=== PATIENT | female | born 1960 | race Caucasian/White ===

== ENCOUNTER 2017-06-12 00:07 | Emergency (ER) | payer MEDICAID ==
[2017-06-12] MEDS ORDERED: ALPRAZolam 0.5 MG Tab PO ONE (01:47)
--- NOTE | 2017-06-12 02:18 | ER ---
DATE SEEN: 06/12/2017 REASON FOR VISIT: Chest tightness. HISTORY OF PRESENT ILLNESS: Pilar is a 56-year-old female complaining of chest tightness most nights of the week and this started tonight after supper. She presents about 6 hours later with tightness that radiates to the back, associated with palpitations and fluttering and difficulty breathing. REVIEW OF SYSTEMS: Denies any headaches, fever, or cough. PAST MEDICAL HISTORY: Atypical chest pain, atrial fibrillation, and anxiety. ALLERGIES: None. SOCIAL HISTORY: Does not smoke. FAMILY HISTORY: No history of premature coronary disease. PHYSICAL EXAMINATION: VITAL SIGNS: Blood pressure is 152/76, pulse is 76, and temperature 98.0. EARS, NOSE, AND THROAT: Negative. HEAD: Normal size. NECK: Supple. CHEST: Clear. CARDIOVASCULAR: Normal. MENTAL STATUS: Alert. Mild anxiety noted, but no signs of venancio or psychosis. LABORATORY DATA: Troponin, D-dimer, CMP unremarkable. Chest x-ray was normal. EKG negative for ST elevation. IMPRESSION: Atypical chest pain. PLAN: I gave her 0.5 mg Xanax b.i.d. p.r.n. We advised to follow with Dr. Gilmore on the , she already has an appointment. To return to the ED with any worsening symptoms. TIME SEEN: 0100 hours. /[id number] DHRUV/ROGELIO
[2017-06-12 02:25] VITALS: BP 141/75
--- NOTE | 2017-06-12 12:38 | CR ---
INDICATION: Chest pain. CHEST: PA and lateral views of the chest, 06/12/2017, were compared with 2014 and 09/15/2014. The heart is normal in size and shape. The aorta is tortuous with minimal calcification in the arch. Overlying EKG leads are noted. An active infiltrate or effusion was not identified. Moderate degenerative changes are noted in the mid thoracic spine with hypertrophic lipping anteriorly. Exogenous obesity is suggested. IMPRESSION: No acute process. Stable chest. MTDD
== END 2017-06-12 01:55 | disposition home or self-care (01) ==
LOC: FB.ED 00:07
DX: R07.89 Other chest pain (principal); I48.91 Unspecified atrial fibrillation; F41.9 Anxiety disorder, unspecified
CPT/HCPCS: 36415; 71020; 80053; 83880; 84484; 85025; 85379; 93005; 99284; A9270; 99283

== ENCOUNTER 2017-10-17 01:29 | Observation (INO) | payer MEDICAID ==
[2017-10-17] MEDS ORDERED: Diltiazem 25 MG/5 ML SDV IVPUSH ONE (01:46)
[2017-10-17] MEDS ORDERED: Diltiazem 25 MG/5 ML SDV ONE (01:49)
[2017-10-17] MEDS ORDERED: Metoprolol Succinate 25 MG Tab.ER PO ONE (01:57)
[2017-10-17] MEDS ORDERED: Metoprolol Tartrate 25 MG Tab PO ONE (02:15)
[2017-10-17] MEDS ORDERED: Sodium Chloride 0.9% 500 ML IV ONE (02:19)
[2017-10-17] MEDS ORDERED: Sodium Chloride 0.9% 500 ML IV SCH (02:20)
[2017-10-17] MEDS: Metoprolol Tartrate 5 MG/5 ML SDV IVPUSH ONE ×2 (02:47→02:50)
[2017-10-17] MEDS ORDERED: Acetaminophen 325 MG Tab PO PRN (06:14)
[2017-10-17] MEDS ORDERED: Temazepam 7.5 MG Cap PO PRN (06:14)
[2017-10-17] MEDS ORDERED: Docusate Sodium 100 MG Cap PO PRN (06:14)
[2017-10-17] MEDS ORDERED: Ondansetron 4 MG Tab.DIS PO PRN (06:14)
[2017-10-17] MEDS ORDERED: Sodium Chloride 0.9% 100 ML IV SCH (06:30)
[2017-10-17] MEDS ORDERED: Diltiazem 100 MG in Sodium Chloride 0.9% 100 ML IV SCH (06:45)
--- NOTE | 2017-10-17 08:35 | PCM.HP ---
H&P History of Present Illness - General Date of Service: 10/17/17 Admit Problem/Dx: Admission Diagnosis/Problem Admission Diagnosis/Problem Atrial fibrillation Source of Information: Patient History Limitations: Reports: No Limitations - History of Present Illness Initial Comments - Free Text/Narative: This is a 57-year-old female patient with history of atrial fibrillation. She dates she went to bed last day and after that she had irregular heart rate with shortness of breath chest pressure that radiated to her back. No nausea or vomiting, diaphoresis. She knew she was atrial fibrillation. Normally she can cough and it goes away and it did not so she went to the ER. She was given Cardizem 25 mg IV. Her rate was 130s that was reported by the nurse. Gave her some beta ed her blood pressure dropped. She was admitted for observation. She still in atrial fibrillation her heart rate is controlled currently. She states she still doesn't feel quite right but she denies chest pressure or shortness of breath. 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 OB/BYN History: G2G2 Musculoskeletal History: Reports: Other (See Below) Other Musculoskeletal History: Pt states that she has been told she might have MS and or that she might have Fibromyalgia - Infectious Disease History Infectious Disease History: Reports: Chicken Pox - Past Surgical History HEENT Surgical History: Reports: None GI Surgical History: Reports: Cholecystectomy Other Musculoskeletal Surgeries/Procedures:: back surgery Social & Family History - Family History Family Medical History: Unobtainable - Tobacco Use Smoking Status *Q: Never Smoker Second Hand Smoke Exposure: No - Caffeine Use Caffeine Use: Reports: None - Alcohol Use Days Per Week of Alcohol Use: 0 - Recreational Drug Use Recreational Drug Use: No H&P Review of Systems - Review of Systems: Review Of Systems: See Below General: Reports: Fatigue HEENT: Reports: No Symptoms Pulmonary: Reports: Shortness of Breath. Denies: Wheezing, Cough, Sputum, Hemoptysis Cardiovascular: Reports: Other (Chest pressure) Gastrointestinal: Reports: No Symptoms Genitourinary: Reports: No Symptoms Musculoskeletal: Reports: Joint Pain Skin: Reports: Other (Hair loss) Psychiatric: Reports: No Symptoms Neurological: Reports: No Symptoms Hematologic/Lymphatic: Reports: No Symptoms Immunologic: Reports: No Symptoms Exam - Exam Exam: See Below - Vital Signs Vital Signs: Last Vital Signs Temp 98.2 F 10/17/17 06:57 Pulse 88 10/17/17 06:57 Resp 18 10/17/17 06:57 BP 125/69 10/17/17 06:57 Pulse Ox 97 10/17/17 06:57 Weight: 218 lb 4.8 oz - Exam General: Alert, Oriented, Cooperative HEENT: PERRLA, Hearing Intact, Posterior Pharynx Clear, TMs Clear Neck: Supple, Trachea Midline Lungs: Clear to Auscultation, Normal Respiratory Effort. No: Rales, Rhonchi Cardiovascular: Regular Rate, Irregular Rhythm. No: Systolic Murmur, Diastolic Murmur GI/Abdominal Exam: Normal Bowel Sounds, Soft, Non-Tender, No Organomegaly, No Distention, No Abnormal Bruit, No Mass Back Exam: Normal Inspection, Full Range of Motion Extremities: Normal Inspection, Normal Range of Motion, Non-Tender, No Pedal Edema Skin: Warm, Dry, Intact Neuro Extensive - Mental Status: Alert, Oriented x3, Normal Mood/Affect, Normal Cognition, Memory Intact Neuro Extensive - Motor, Sensory, Reflexes: Normal Gait Psychiatric: Alert, Normal Affect, Normal Mood - Patient Data Result Diagrams: 10/17/17 01:50 10/17/17 01:50 *Q Meaningful Use (ADM) - VTE *Q VTE Criteria *Q: - Stroke *Q Stroke Criteria *Q: - AMI *Q AMI Criteria *Q: - Problem List (1) Hypothyroidism SNOMED Code(s): 80300118 ICD Code: E03.9 - HYPOTHYROIDISM, UNSPECIFIED Status: Acute Current Visit : Yes (2) Atrial fibrillation SNOMED Code(s): 56639028 ICD Code: I48.91 - UNSPECIFIED ATRIAL FIBRILLATION Status: Acute Current Visit: No Problem Details: Screening lab work, chest x ray, note no other abnormalities. Problem List Initiated/Reviewed/Updated: Yes Orders Last 24hrs: Active Orders 24 hr Category Date Time Status Diltiazem [Cardizem] 100 mg Med 10/17/17 06:45 Active Sodium Chloride 0.9% [Normal Saline] 100 ml IV TITRATE Pantoprazole [ProTONIX] Med 10/17/17 08:00 Active 40 mg PO 0600 Sodium Chloride 0.9% [Normal Saline] 100 ml Med 10/17/17 06:30 Active IV ASDIRECTED Medication Orders Acetaminophen (Tylenol) 650 mg PO Q4H PRN PRN Reason: Pain (Mild 1-3)/fever Docusate Sodium (Colace) 100 mg PO BID PRN PRN Reason: Constipation Enoxaparin Sodium (Lovenox) 40 mg SUBCUT Q24H [facility] Sodium Chloride (Normal Saline) 500 mls @ 999 mls/hr IV ASDIRECTED [facility] Last Admin: 10/17/17 02:30 Dose: 999 mls/hr Sodium Chloride (Normal Saline) 100 mls @ 100 mls/hr IV ASDIRECTED [facility] Diltiazem HCl 100 mg/ Sodium (Chloride) 100 mls @ 10 mls/hr IV TITRATE [facility]; 10 MG/HR PRN Reason: Protocol Ondansetron HCl (Zofran Odt) 4 mg PO Q4H PRN PRN Reason: nausea, able to take PO Pantoprazole Sodium (Protonix) 40 mg PO 0600 [facility] Temazepam (Restoril) 7.5 mg PO BEDTIME PRN PRN Reason: Sleep Assessment/Plan Comment:: 1. Patient was admitted to the floor on telemetry. Her rate currently is controlled. 2. Continue observation to see if she'll convert on her own. 3. She's not in the home meds at this times area 4. Start low-dose of levothyroxine 50 g a day. 5. Regular diet 6. Up ad franca.
[2017-10-17] MEDS: Pantoprazole 40 MG Tab.CR PO SCH (08:40)
[2017-10-17] MEDS: Enoxaparin 40 MG/0.4 ML Syringe SUBCUT SCH (08:40)
[2017-10-17] MEDS: Levothyroxine 50 MCG Tab PO SCH (09:41)
[2017-10-17] MEDS ORDERED: Sodium Chloride 0.9% 10 ML Syringe FLUSH PRN (11:31)
[2017-10-17] MEDS: Diltiazem IR 30 MG Tab PO SCH ×3 (11:56→23:47)
[2017-10-18 04:02] VITALS: BP 103/66
[2017-10-18] MEDS: Levothyroxine 50 MCG Tab PO SCH (06:34)
[2017-10-18] MEDS: Pantoprazole 40 MG Tab.CR PO SCH (06:34)
[2017-10-18] MEDS: Enoxaparin 40 MG/0.4 ML Syringe SUBCUT SCH (06:35)
--- NOTE | 2017-10-18 07:45 | PCM.PN ---
- General Info Date of Service: 10/18/17 Admission Dx/Problem (Free Text): This patient states she had lots of hot flashes last night. She normally has and that they were worse. Course she was started on thyroid medicine yesterday. She converted last night and she feels good. She denies chest pain, palpitations , weakness or shortness of breath. - Patient Data Vitals - Most Recent: Last Vital Signs Temp 98.2 F 10/18/17 03:15 Pulse 64 10/18/17 03:15 Resp 16 10/18/17 03:15 BP 103/66 10/18/17 03:15 Pulse Ox 96 10/18/17 03:15 Weight - Most Recent: 218 lb 4.8 oz Med Orders - Current: Current Medications Acetaminophen (Tylenol) 650 mg PO Q4H PRN PRN Reason: Pain (Mild 1-3)/fever Docusate Sodium (Colace) 100 mg PO BID PRN PRN Reason: Constipation Enoxaparin Sodium (Lovenox) 40 mg SUBCUT Q24H [facility] Last Admin: 10/18/17 06:35 Dose: 40 mg Levothyroxine Sodium (Synthroid) 50 mcg PO 0600 [facility] Last Admin: 10/18/17 06:34 Dose: 50 mcg Ondansetron HCl (Zofran Odt) 4 mg PO Q4H PRN PRN Reason: nausea, able to take PO Pantoprazole Sodium (Protonix) 40 mg PO 0600 [facility] Last Admin: 10/18/17 06:34 Dose: 40 mg Sodium Chloride (Saline Flush) 10 ml FLUSH ASDIRECTED PRN PRN Reason: to keep vein open Temazepam (Restoril) 7.5 mg PO BEDTIME PRN PRN Reason: Sleep Discontinued Medications Diltiazem HCl (Diltiazem) Confirm Administered Dose 25 mg .ROUTE .STK-MED ONE Stop: 10/17/17 01:50 Last Admin: 10/17/17 01:54 Dose: Not Given Diltiazem HCl (Diltiazem) 25 mg IVPUSH ONETIME ONE Stop: 10/17/17 01:47 Last Admin: 10/17/17 01:54 Dose: 25 mg Diltiazem HCl (Cardizem) 60 mg PO Q6H [facility] Stop: 10/17/17 23:31 Last Admin: 10/17/17 23:47 Dose: 60 mg Sodium Chloride (Normal Saline) 500 mls @ 999 mls/hr IV .BOLUS ONE Stop: 10/17/17 02:49 Last Admin: 10/17/17 02:49 Dose: Not Given Sodium Chloride (Normal Saline) 500 mls @ 999 mls/hr IV ASDIRECTED [facility] Last Admin: 10/17/17 02:30 Dose: 999 mls/hr Sodium Chloride (Normal Saline) 100 mls @ 100 mls/hr IV ASDIRECTED EM[facility] Diltiazem HCl 100 mg/ Sodium (Chloride) 100 mls @ 10 mls/hr IV TITRATE EMILIA; 10 MG/HR PRN Reason: Protocol Metoprolol Succinate (Toprol Xl) 25 mg PO ONETIME ONE Stop: 10/17/17 01:58 Last Admin: 10/17/17 02:54 Dose: Not Given Metoprolol Tartrate (Lopressor) 25 mg PO ONETIME ONE Stop: 10/17/17 02:16 Last Admin: 10/17/17 02:26 Dose: 25 mg Metoprolol Tartrate (Lopressor) 5 mg IVPUSH ONETIME ONE Stop: 10/17/17 02:31 Last Admin: 10/17/17 02:50 Dose: Not Given - Exam General: Alert, Oriented Lungs: Clear to Auscultation, Normal Respiratory Effort Cardiovascular: Regular Rate, Regular Rhythm, No Murmurs Extremities: No Pedal Edema - Problem List & Annotations (1) Hypothyroidism SNOMED Code(s): 34530046 Code(s): E03.9 - HYPOTHYROIDISM, UNSPECIFIED Status: Acute Current Visit : Yes (2) Atrial fibrillation SNOMED Code(s): 01066520 Code(s): I48.91 - UNSPECIFIED ATRIAL FIBRILLATION Status: Acute Current Visit: No Annotation/Comment:: Screening lab work, chest x ray, note no other abnormalities. - Problem List Review Problem List Initiated/Reviewed/Updated: Yes - My Orders Last 24 Hours: My Active Orders 10/17/17 09:00 Levothyroxine [Synthroid] 50 mcg PO 0600 10/17/17 11:31 Sodium Chloride 0.9% [Saline Flush] 10 ml FLUSH ASDIRECTED PRN - Plan Plan:: 1. Discharge to home. 2. I'm not going to send her home on the thyroid at this moment because of the hot flashes. I will have a repeat TSH with a T4-T3 in the clinic. 3. No Cardizem at home at this time.
--- NOTE | 2017-10-18 07:50 | PCM.DCSUM1 ---
Discharge Summary - Hospital Course Free Text/Narrative:: Hospital course-patient was placed in the hospital after she had the Cardizem bolus and the labetalol. She was hypotensive in the ER and was bolused with fluids and blood pressure returned to normal. We put her in for observation. Watch her on telemetry. Her TSH was over 8 so I started 50 g of levothyroxine. Patient had lots of hot flashes the night she was on this medicine. She says she has hot flashes normally but it's worse. At T4/T3 were not done. So I will stop this medicine have it rechecked in the clinic with a TSH, T4 and T3. Patient's pulse was controlled on no medication but when she got up to walk it would go up to like 130s. So start Cardizem 60 mg every 6 hours total midnight. With the thought in the morning and start long-acting Cardizem. Patient converted overnight and will be discharged to home. Brief History: This is a 57-year-old female patient with history of atrial fibrillation. She dates she went to bed last day and after that she had irregular heart rate with shortness of breath chest pressure that radiated to her back. No nausea or vomiting, diaphoresis. She knew she was atrial fibrillation. Normally she can cough and it goes away and it did not so she went to the ER. She was given Cardizem 25 mg IV. Her rate was 130s that was reported by the nurse. Gave her some beta ed her blood pressure dropped. She was admitted for observation. She still in atrial fibrillation her heart rate is controlled currently. She states she still doesn't feel quite right but she denies chest pressure or shortness of breath. - Discharge Data Discharge Date: 10/18/17 Discharge Disposition: Home, Self-Care 01 Condition: Good - Discharge Diagnosis/Problem(s) (1) Hypothyroidism SNOMED Code(s): 57715757 ICD Code: E03.9 - HYPOTHYROIDISM, UNSPECIFIED Status: Acute Current Visit : Yes (2) Atrial fibrillation SNOMED Code(s): 21697220 ICD Code: I48.91 - UNSPECIFIED ATRIAL FIBRILLATION Status: Acute Current Visit: No Problem Details: Screening lab work, chest x ray, note no other abnormalities. - Patient Instructions Diet: Regular Diet as Tolerated Activity: As Tolerated Driving: May Drive Today Showering/Bathing: May Shower Other/Special Instructions: 1. TSH, T4, T3 on Thursday of this week. I set this up for her. 2. Appointment with Dr. Gilmore on . I sent this up for her. 3. She has no work restrictions. 4. Echocardiogram in the clinic. I will set this up also. - Discharge Plan Home Medications: Home Meds Black Cohosh 2 cap PO DAILY 10/17/17 [History] Cholecalciferol (Vitamin D3) [Vitamin D3] 1,000 unit PO DAILY 10/17/17 [History] Cinnamon Bark [Cinnamon] 500 mg PO BID 10/17/17 [History] Cranberry Extract [Cranberry] 500 mg PO DAILY 10/17/17 [History] Garlic 500 mg PO DAILY 10/17/17 [History] L.acidoph,Paracasei, B.lactis [Probiotic] 1 cap PO DAILY 10/17/17 [History] Magnesium 800 mg PO BEDTIME 10/17/17 [History] Magnesium Oxide 400 mg PO DAILY 10/17/17 [History] Multivitamin [One Daily] 1 tab PO DAILY 10/17/17 [History] Naproxen Sodium [Aleve] 220 mg PO BID PRN 10/17/17 [History] Ranitidine [Zantac] 75 - 150 mg PO DAILY 10/17/17 [History] Tumeric 1 tab PO DAILY 10/17/17 [History] Patient Handouts: Levothyroxine tablets, Diltiazem tablets, Atrial Fibrillation , [id number] Forms: ED Department Discharge Referrals: PCP,None [Primary Care Provider] - - Discharge Summary/Plan Comment DC Time >30 min.: No - Patient Data Vitals - Most Recent: Last Vital Signs Temp 98.2 F 10/18/17 03:15 Pulse 64 10/18/17 03:15 Resp 16 10/18/17 03:15 BP 103/66 10/18/17 03:15 Pulse Ox 96 10/18/17 03:15 Weight - Most Recent: 218 lb 4.8 oz Med Orders - Current: Current Medications Acetaminophen (Tylenol) 650 mg PO Q4H PRN PRN Reason: Pain (Mild 1-3)/fever Docusate Sodium (Colace) 100 mg PO BID PRN PRN Reason: Constipation Enoxaparin Sodium (Lovenox) 40 mg SUBCUT Q24H [facility] Last Admin: 10/18/17 06:35 Dose: 40 mg Levothyroxine Sodium (Synthroid) 50 mcg PO 0600 [facility] Last Admin: 10/18/17 06:34 Dose: 50 mcg Ondansetron HCl (Zofran Odt) 4 mg PO Q4H PRN PRN Reason: nausea, able to take PO Pantoprazole Sodium (Protonix) 40 mg PO 0600 [facility] Last Admin: 10/18/17 06:34 Dose: 40 mg Sodium Chloride (Saline Flush) 10 ml FLUSH ASDIRECTED PRN PRN Reason: to keep vein open Temazepam (Restoril) 7.5 mg PO BEDTIME PRN PRN Reason: Sleep Discontinued Medications Diltiazem HCl (Diltiazem) Confirm Administered Dose 25 mg .ROUTE .STK-MED ONE Stop: 10/17/17 01:50 Last Admin: 10/17/17 01:54 Dose: Not Given Diltiazem HCl (Diltiazem) 25 mg IVPUSH ONETIME ONE Stop: 10/17/17 01:47 Last Admin: 10/17/17 01:54 Dose: 25 mg Diltiazem HCl (Cardizem) 60 mg PO Q6H [facility] Stop: 10/17/17 23:31 Last Admin: 10/17/17 23:47 Dose: 60 mg Sodium Chloride (Normal Saline) 500 mls @ 999 mls/hr IV .BOLUS ONE Stop: 10/17/17 02:49 Last Admin: 10/17/17 02:49 Dose: Not Given Sodium Chloride (Normal Saline) 500 mls @ 999 mls/hr IV ASDIRECTED [facility] Last Admin: 10/17/17 02:30 Dose: 999 mls/hr Sodium Chloride (Normal Saline) 100 mls @ 100 mls/hr IV ASDIRECTED [facility] Diltiazem HCl 100 mg/ Sodium (Chloride) 100 mls @ 10 mls/hr IV TITRATE [facility]; 10 MG/HR PRN Reason: Protocol Metoprolol Succinate (Toprol Xl) 25 mg PO ONETIME ONE Stop: 10/17/17 01:58 Last Admin: 10/17/17 02:54 Dose: Not Given Metoprolol Tartrate (Lopressor) 25 mg PO ONETIME ONE Stop: 10/17/17 02:16 Last Admin: 10/17/17 02:26 Dose: 25 mg Metoprolol Tartrate (Lopressor) 5 mg IVPUSH ONETIME ONE Stop: 10/17/17 02:31 Last Admin: 10/17/17 02:50 Dose: Not Given *Q Meaningful Use (DIS) - VTE *Q VTE Criteria *Q: - Stroke *Q Stroke Criteria *Q: - AMI *Q AMI Criteria *Q:
--- NOTE | 2017-10-20 14:25 | ER ---
DATE SEEN: 10/17/2017 TIME SEEN: This patient was seen at 0135 hours. HISTORY OF PRESENT ILLNESS: The patient is complaining of shortness of breath and onset of atrial fibrillation. She was just going to bed, and she noted increased irregularity of heartbeat. She has had known history of this in the past 30 years. She notes she usually treats it with cough. She has been hospitalized on 2 occasions for atrial fibrillation. Most recently, in June and May, 2016 and 2014. Last time we treated with Cardizem drip and seemed to stabilize, after having been admitted to the hospital. The patient noted with some onset of atrial fibrillation last night, she felt weird, mildly short of breath, and slight tightness in the chest. No history of previous PE or myocardial infarction. MEDICATIONS: She takes a host of 13 [id number] medicines: 1. Cinnamon. 2. Turmeric. 3. Tart hawkins. 4. Magnesium. 5. Vitamin C. 6. B complex. 7. Garlic. 8. Eggshell membrane (for her knees). 9. Fish oil. 10.Probiotic. 11.Black cohosh. PREVIOUS SURGERY: Cholecystectomy, laparoscopic laser treatment of endometriosis, tonsillectomy, x1, and D and C. SOCIAL HISTORY: . The patient is nonsmoker, does not drink alcohol. The patient lives in [place]. PAST MEDICAL HISTORY: Significant for obesity, rheumatoid arthritis needs "right knee replacement." REVIEW OF SYSTEMS: HEENT: Occasionally eyes get blurry, lasts for a part of the day and resolves spontaneously. 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 She attempted cough to resolve her atrial fibrillation, was not successful in the last 5 to 6 hours. ABDOMEN: GERD significant problem. She does not take any prescribed medicine. She uses [id number] Tagamet and gets along reasonably well, also uses madison. MUSCULOSKELETAL: Right knee arthritis, needs replacement and has arthritis in left hand. She is right-handed. She has rash intermittently on her eyebrows, forehead, and her neck that comes and goes, sometime lasts part of the day and resolves with etiology indeterminate. Chronic low back pain. Arthritis, generalized. LUNGS: Mild shortness of breath. Last night, she felt short of breath and felt "weird". GENITOURINARY: Denies frequency, urgency, or dysuria. PSYCHIATRIC: Negative. No depression. DERMIS: Noted above. PHYSICAL EXAMINATION: VITAL SIGNS: On arrival at 0130 hours, irregularly irregular heart rate. Noted on the chart, heart rate 137 with irregularly irregular heart rate. CONSTITUTIONAL: The patient is overweight. She feels "weird" and feels mild shortness of breath, more than normal, and notes again she experiences she is aware of irregularly irregular heartbeat. HEENT: PERRLA intact. Eyegrounds negative. Pharynx without abnormality. NECK: No thyromegaly or masses in neck. No cervical adenopathy. No bruits in the neck. LUNGS: Clear without rales, rhonchi, or wheezes. HEART: S1, S2. No murmur. She does have an irregularly irregular heart rate. CHEST: Nontender to palpation. ABDOMEN: Nontender, no guarding, no rebound. Increased abdominal girth noted. EXTREMITIES: 1+ pedal edema. No pain with moving the knees or hips. She has mild dactylitis at left MP joints 2 and 3, less than the right and mild thickening membranes at MP joints 2 and 3 with involvement of dactylitis to the proximal fingers 2 and 3. Deep tendon reflexes present at upper extremities, absent at lower extremities. NEUROLOGIC: Cranial nerves 2 through 12 intact. Hearing intact. No pronator drift. Muscle strength is normal. No past-pointing. IMAGING: EKG, atrial fibrillation, heart rate 130s. On observation on the monitor, heart rate up to 150s, but mostly 130s. LABORATORY FINDINGS: Hemoglobin 14.9, MCH 25 is low, MCHC is 31.4 is low. RDW is 14.7, platelets 568,000 - thrombocythemia. Basophils 4%, otherwise normal neutrophils 51, lymphocytes 34, monos 8, eosinophils 4. Complete metabolic panel; sodium 141, potassium 4.0, chloride 103, bicarbonate 28, BUN 27, creatinine 0.9. GFR greater than 60. BUN and creatinine ratio 30 (dehydration). Troponin less than 0.017. Urinalysis normal 1.005 specific gravity and toxicology screen-drug screen negative. ASSESSMENT: 1. Atrial fibrillation. Thirty years history of the same with failure to respond to Cardizem 0.25 mg/kg push 25 mg,; she was treated with an additional metoprolol 25 mg orally plus 1 dose Lopressor 5 mg IV. Her heart rate went down to the 90s. 2. Obesity. 3. Perhaps atrial fibrillation magnified by the cascade of multiple over-the- counter medicines. She is currently not on any atrial fibrillation medicines. Consider beta-blockers. She needs beta-blockers. 4. Previous surgeries cholecystectomy, tonsillectomy, low back surgery, C- section, laparoscopic endometriosis laser treatment, dilation and curettage. 5. Rheumatoid arthritis - it is possible her atrial fibrillation is beginning to catch up to her rheumatoid arthritis and the effect on her heart caused rheumatoid heart - she also has manifestation of rheumatoid arthritis in her fingers and her right knee, the latter she needs replaced but has not chosen to get it replaced. 6. The patient still has this "weird" feeling in her lung that has almost completely resolved, but she feels still a slight shortness of breath. I do not feel she has a PE. D-dimer is ordered just before admission and is pending. The patient has lack of therapeutic response to trial of Cardizem loading dose. This resulted in a slight drop in her pressure. Consequently, the patient was not placed on drip. [place] that she might have more dramatic response with atrium and ventricle irregularity suppression with beta-ed, but she still says her blood pressures have climbed back up to 128/88, but still does not have a sinus rhythm. She did convert with the Cardizem drip on the last occasion. PLAN: Initiate Cardizem drip and admit for observation. EKG was noted to have sinus tachycardia with irregular heartbeat, heart rate 137. Right atrial enlargement, atypical right bundle-branch block, intraventricular conduction abnormality, QT was 485 milliseconds corrected. /[id number] LS/MODL ADDENDUM: The patient has multiplicity of [id number] herbals. [place] has hypoglycemic, hypertensive, and cardiac side effects and is also noted to decrease cholesterol. Cohosh has hypertensives side effect; otherwise, cohosh is noted to be estrogenic and supposedly affects hot flashes, cramping, menopause, but the studies that have been performed are inconsistent as to its overall effect. In general, the patient has not been on any anticoagulants. Perhaps it is worthy of consideration. She has been placed on enoxaparin with this admission for observation. /[id number] ULICES/ROGELIO FORD
== END 2017-10-18 08:50 | disposition home or self-care (01) ==
LOC: FB.ED 01:29 → FB.MS 06:14
PROVIDERS: ADMIT Emergency Medicine; ATTEND Family Medicine
DX: E03.9 Hypothyroidism, unspecified (principal); I48.91 Unspecified atrial fibrillation; E78.00 Pure hypercholesterolemia, unspecified; K21.9 Gastro-esophageal reflux disease without esophagitis; E66.9 Obesity, unspecified; Z90.49 Acquired absence of other specified parts of digestive tract; Z79.899 Other long term (current) drug therapy
CPT/HCPCS: 36415; 80053; 80305; 81001; 83735; 84443; 84484; 85025; 93005; 96361; 96372; 96374; 99285; A9270; G0378; J1650; J3490; J7040

== ENCOUNTER 2020-04-08 17:41 | Inpatient (IN) | payer MEDICAID, OTHER ==
[2020-04-08] MEDS: Sodium Chloride 0.9% 10 ML Syringe FLUSH PRN (17:55)
--- NOTE | 2020-04-08 17:56 | EDM.PDOC ---
ED HPI GENERAL MEDICAL PROBLEM - General Stated Complaint: SOB Time Seen by Provider: 04/08/20 17:55 Source of Information: Reports: Patient History Limitations: Reports: No Limitations - History of Present Illness INITIAL COMMENTS - FREE TEXT/NARRATIVE: 59-year-old female who reports awoke yesterday morning at 8 AM with a feeling of shortness of breath. She also felt that her heart was beating somewhat fast. She does have a history of atrial fibrillation but it did not seem irregular to her. She noted that the shortness of breath was much worse with any kind of activity and even small amounts of activity seemed to make her very short of breath. His symptoms of shortness of breath seemed to get progressively worse over time and last night it seemed to be even worse than during the day but she continued to "hold out" to see if it would get better. She noted that sometimes when she would walk her heart rate would get up to 160. She also developed a heaviness yesterday morning and that has been continually present since 8 AM yesterday. It did seem to wax and wane and it varied with her activity but it did not completely go away. She has had no cough. There has been no fever. He did have pain in her left shoulder and upper arm yesterday for a short time but that went away. She also has had intermittent pains in her right calf to just today that is a sharp pain and a crampy type pain. Seems to come and go as well. A heaviness in her chest is rated by her as a 5/10 at present but with activity it goes up to a 10/10. She has had no hemoptysis. She has had no abdominal pain. No nausea or vomiting. She does feel fatigued and tired. There are no other associated signs or symptoms. There are no other modifying factors. 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) Midsternal chest Pain Score (Numeric/FACES): 5 - Related Data Allergies Allergy/AdvReac Type Severity Reaction Status Date / Time No Known Allergies Allergy Verified 04/08/20 18:02 Home Meds: Home Meds Cholecalciferol (Vitamin D3) [Vitamin D3] 1,000 unit PO DAILY 10/17/17 [History] Cinnamon Bark [Cinnamon] 500 mg PO BID 10/17/17 [History] Cranberry Fruit Extract [Cranberry] 500 mg PO DAILY 10/17/17 [History] Garlic 1,000 mg PO DAILY 10/17/17 [History] L.acidoph,Paracasei, B.lactis [Probiotic] 1 cap PO DAILY 10/17/17 [History] Magnesium 400 mg PO QID 10/17/17 [History] Multivitamin [One Daily] 1 tab PO DAILY 10/17/17 [History] Tumeric 1 tab PO DAILY 10/17/17 [History] Cyclobenzaprine [Flexeril] 10 mg PO TID PRN 09/20/18 [History] Ibuprofen 400 mg PO BID 09/20/18 [History] diazePAM [Valium] 10 mg PO Q12H PRN 09/20/18 [History] Ascorbate Calcium [Vitamin C] 1,000 mg PO DAILY 11/01/18 [History] Lutein 20 mg PO DAILY 11/01/18 [History] Elbe-3/DHA/Epa/Fish Oil [Elbe-3 Fish Oil 1,000 MG Sfgl] 1,000 mg PO DAILY [History] Phytonadione [Mephyton] 5 mg PO DAILY 11/01/18 [History] Vitamin E 1,000 units PO DAILY 11/01/18 [History] Esomeprazole [NexIUM] 20 mg PO DAILY 04/08/20 [History] Past Medical History HEENT History: Reports: Impaired Vision, Other (See Below) Other HEENT History: TMJ Cardiovascular History: Reports: Afib (Paroxysmal A. fib), High Cholesterol Gastrointestinal History: Reports: GERD Other TURN DOWN MAN History: G2G2 Musculoskeletal History: Reports: Arthritis, Back Pain, Chronic, Other (See Below) Other Musculoskeletal History: Pt states that she has been told she might have MS and or that she might have Fibromyalgia - Infectious Disease History Infectious Disease History: Reports: Chicken Pox - Past Surgical History HEENT Surgical History: Reports: Tonsillectomy GI Surgical History: Reports: Cholecystectomy Female Surgical History: Reports: Section, Cystectomy (Laparoscopy for ovarian cystectomy), Other (See Below) (Laser surgery for removal of genital warts) Other Musculoskeletal Surgeries/Procedures:: back surgery Social & Family History - Family History Cardiac: Reports: CAD (Younger sister with recent SC and angioplasty with stent placed) - Caffeine Use Caffeine Use: Reports: None - Alcohol Use Alcohol Use History: No - Living Situation & Occupation Occupation: Unemployed ED ROS GENERAL - Review of Systems Review Of Systems: See Below Constitutional: Reports: Fatigue HEENT: Reports: No Symptoms Respiratory: Reports: Shortness of Breath. Denies: Cough, Hemoptysis Cardiovascular: Reports: Chest Pain, Lightheadedness GI/Abdominal: Reports: No Symptoms : Reports: No Symptoms Musculoskeletal: Reports: Shoulder Pain (Left shoulder and upper arm pain), Leg Pain (Right calf pain) Skin: Reports: No Symptoms Neurological: Reports: No Symptoms (Except lightheadedness as above.). Denies: Headache Hematologic/Lymphatic: Reports: No Symptoms Immunologic: Reports: No Symptoms ED EXAM, GENERAL - Physical Exam Exam: See Below Exam Limited By: No Limitations General Appearance: Alert, Mild Distress (Some respiratory distress even with talking but is able to talk in complete sentences.), Obese Eye Exam: Bilateral Eye: EOMI, Normal Inspection, PERRL Ears: Normal External Exam, Hearing Grossly Normal Ear Exam: Bilateral Ear: Auricle Normal Nose: Normal Inspection, Normal Mucosa, No Blood Throat/Mouth: Normal Inspection, Normal Lips, Normal Oropharynx, Normal Voice, No Airway Compromise Head: Atraumatic, Normocephalic Neck: Normal Inspection, Supple, Non-Tender, Full Range of Motion Respiratory/Chest: No Respiratory Distress, Lungs Clear, Normal Breath Sounds, No Accessory Muscle Use, Chest Non-Tender Cardiovascular: Normal Peripheral Pulses, No Gallop, No Murmur, No Rub, Tachycardia Peripheral Pulses: 2+: Radial (L), Radial (R), Dorsalis Pedis (L), Dorsalis Pedis (R) GI/Abdominal: Normal Bowel Sounds, Soft, Non-Tender, No Mass Back Exam: Normal Inspection, Full Range of Motion Extremities: Normal Range of Motion, Normal Capillary Refill, Pedal Edema ( Bilaterally but worse on the right than left.), Other (Right posterior calf tenderness. No venous cord noted.). No: Increased Warmth Neurological: Alert, Oriented, CN II-XII Intact, Normal Cognition, No Motor/ Sensory Deficits Skin Exam: Warm, Dry, Intact, Normal Color, No Rash EKG INTERPRETATION EKG Date: 04/08/20 Time: 17:48 Rhythm: Other (Sinus tachycardia) Rate (Beats/Min): 107 Yulan: LAD-Left Yulan Deviation P-Wave: Present QRS: Normal ST-T: Normal QT: Prolonged (Slightly prolonged QTc) Comparison: No Change (No change from EKG performed on 09/2018 other than now there is a sinus tachycardia) Course - Vital Signs Last Recorded V/S: Last Vital Signs Temp 36.5 C 04/08/20 17:41 Pulse 117 H 04/08/20 17:41 Resp 20 04/08/20 17:41 BP 146/83 H 04/08/20 17:41 Pulse Ox 96 04/08/20 17:41 - Orders/Labs/Meds Orders: Active Orders 24 hr Category Date Time Status EKG Documentation Completion [RC] ASDIRECTED Care 04/08/20 18:25 Active Ang Chest [CT] Stat Exams 04/08/20 19:00 Ordered Chest 1V Frontal [CR] Stat Exams 04/08/20 18:24 Taken Sodium Chloride 0.9% [Saline Flush] Med 04/08/20 18:24 Active 10 ml FLUSH ASDIRECTED PRN Peripheral IV Insertion Adult [OM.PC] Routine Oth 04/08/20 18:24 Ordered EKG 12 Lead [EK] Routine Ther 04/08/20 18:24 Ordered Medication Orders Sodium Chloride (Saline Flush) 10 ml FLUSH ASDIRECTED PRN PRN Reason: Keep Vein Open Last Admin: 04/08/20 17:55 Dose: 10 ml Labs: Laboratory Tests 04/08/20 04/08/20 04/08/20 Range/Units 17:55 17:55 17:55 WBC 14.9 H (4.5-12.0) X10-3/uL RBC 6.10 H (3.23-5.20) x10(6)uL Hgb 15.9 H (11.5-15.5) g/dL Hct 50.0 (30.0-51.3) % MCV 81.9 (80-96) fL MCH 26.0 L (27.7-33.6) pg MCHC 31.7 L (32.2-35.4) g/dL RDW 13.2 (11.5-15.5) % Plt Count 379 H (125-369) X10(3)uL MPV 8.6 (7.4-10.4) fL Neut % (Auto) 72.0 (46-82) % Lymph % (Auto) 15.6 (13-37) % [place] % (Auto) 7.8 (4-12) % Eos % (Auto) 2 (1.0-5.0) % Baso % (Auto) 3 H (0-2) % Neut # (Auto) 10.7 H (1.6-8.3) # Lymph # (Auto) 2.3 (0.6-5.0) # [place] # (Auto) 1.2 (0.0-1.3) # Eos # (Auto) 0.2 (0.0-0.8) # Baso # (Auto) 0.5 H (0.0-0.2) # PT (9.0-11.1) sec INR (1.00-1.24) APTT (24.4-33.2) SECONDS Sodium 139 (135-145) mmol/L Potassium 4.2 (3.5-5.3) mmol/L Chloride 103 (100-110) mmol/L Carbon Dioxide 27 (21-32) mmol/L BUN 13 (7-18) mg/dL Creatinine 1.0 (0.55-1.02) mg/dL Est Cr Clr Drug Dosing 51.02 mL/min Estimated GFR (MDRD) 56 L (>60) BUN/Creatinine Ratio 13.0 (9-20) Glucose 113 (80-116) mg/dL Calcium 9.7 (8.6-10.2) mg/dL Magnesium 2.2 (1.8-2.5) mg/dL Total Bilirubin 0.5 (0.1-1.3) mg/dL AST 32 H D (5-25) IU/L ALT 34 (12-36) U/L Alkaline Phosphatase 79 (56-112) IU/L Troponin I 18.8 (4.0-60.3) pg/mL NT-Pro-B Natriuret Pep 844 H (<=125) pg/mL Total Protein 8.1 H (6.0-8.0) g/dL Albumin 4.3 (3.2-4.6) g/dL Globulin 3.8 g/dL Albumin/Globulin Ratio 1.1 05/31/20 Range/Units 17:55 WBC (4.5-12.0) X10-3/uL RBC (3.23-5.20) x10(6)uL Hgb (11.5-15.5) g/dL Hct (30.0-51.3) % MCV (80-96) fL MCH (27.7-33.6) pg MCHC (32.2-35.4) g/dL RDW (11.5-15.5) % Plt Count (125-369) X10(3)uL MPV (7.4-10.4) fL Neut % (Auto) (46-82) % Lymph % (Auto) (13-37) % [place] % (Auto) (4-12) % Eos % (Auto) (1.0-5.0) % Baso % (Auto) (0-2) % Neut # (Auto) (1.6-8.3) # Lymph # (Auto) (0.6-5.0) # [place] # (Auto) (0.0-1.3) # Eos # (Auto) (0.0-0.8) # Baso # (Auto) (0.0-0.2) # PT 11.0 (9.0-11.1) sec INR 1.02 (1.00-1.24) APTT 26.7 (24.4-33.2) SECONDS Sodium (135-145) mmol/L Potassium (3.5-5.3) mmol/L Chloride (100-110) mmol/L Carbon Dioxide (21-32) mmol/L BUN (7-18) mg/dL Creatinine (0.55-1.02) mg/dL Est Cr Clr Drug Dosing mL/min Estimated GFR (MDRD) (>60) BUN/Creatinine Ratio (9-20) Glucose (80-116) mg/dL Calcium (8.6-10.2) mg/dL Magnesium (1.8-2.5) mg/dL Total Bilirubin (0.1-1.3) mg/dL AST (5-25) IU/L ALT (12-36) U/L Alkaline Phosphatase (56-112) IU/L Troponin I (4.0-60.3) pg/mL NT-Pro-B Natriuret Pep (<=125) pg/mL Total Protein (6.0-8.0) g/dL Albumin (3.2-4.6) g/dL Globulin g/dL Albumin/Globulin Ratio Meds: Medications Generic Name Dose Route Start Last Admin Trade Name Freq PRN Reason Stop Dose Admin Sodium Chloride 10 ml 04/08/20 18:24 04/08/20 17:55 Saline Flush FLUSH 10 ml ASDIRECTED PRN Administration Keep Vein Open Discontinued Medications Generic Name Dose Route Start Last Admin Trade Name Freq PRN Reason Stop Dose Admin Aspirin 324 mg 04/08/20 18:28 04/08/20 18:29 Aspirin PO 04/08/20 18:29 324 mg ONETIME ONE Administration Sodium Chloride 500 mls @ 999 mls/hr 04/08/20 18:59 04/08/20 19:20 Normal Saline IV 04/08/20 19:29 999 mls/hr .BOLUS ONE Administration Iopamidol 100 ml 04/08/20 19:06 04/08/20 19:18 Isovue-370 (76%) IV 04/08/20 19:07 77 ml . DIRECTED ONE Administration - Radiology Interpretation Free Text/Narrative:: Portable chest x-ray shows no acute disease. CTA of the chest shows bilateral pulmonary emboli per my reading. This is pending radiology read. - Re-Assessments/Exams Free Text/Narrative Re-Assessment/Exam: 04/08/20 18:55: Patient was normal. Chest x-ray. Her EKG is unchanged from previous other than she has a tachycardia. Her lab tests are the most part reassuring. She has a mild elevation in her proBNP. Her troponin was negative. Her BUN and creatinine were normal. She has signs and symptoms of pulmonary emboli with possible right lower extremity as a source of thromboemboli. I will send the patient for CTA of her chest. 04/08/20 19:31: Patient remains somewhat tachycardic. Her O2 saturations are still 100% on room air. Pulmonary review of the CTA of her chest by myself shows what I feel to be bilateral pulmonary emboli. This is pending radiology over read. The patient's disposition will be based on the diagnostic data that is still pending. 04/08/20 19:42: I discussed the CT findings with the patient. And I also discussed the need for admission with anticoagulation. The patient would be desirous of eating admitted here and would not necessarily want transport to another facility. Therefore the patient will be admitted here. Dr. Rubin will be placing admission orders as I am going off shift and be assuming care of the patient until the patient is on the service of Dr. De Leon at 7 AM on 04/09/2020. If there are any other findings on the CTA not appreciated by myself or Dr. Rubin , the patient's disposition could chained but the plan now is to admit the patient here. This will be marshaled by Dr. Rubin. Departure - Departure Time of Disposition: 19:45 Disposition: Admitted As Inpatient 64 Condition: Fair Clinical Impression: Bilateral pulmonary embolism - Discharge Information Referrals: Austin Marie MD [Primary Care Provider] - Sepsis Event Note - Focused Exam Vital Signs: Vital Signs Temp Pulse Resp BP Pulse Ox 04/08/20 17:41 36.5 C 117 H 20 146/83 H 96 Date Exam was Performed: 04/08/20 Time Exam was Performed: 19:41 - My Orders Last 24 Hours: My Active Orders 04/08/20 18:24 Chest 1V Frontal [CR] Stat Sodium Chloride 0.9% [Saline Flush] 10 ml FLUSH ASDIRECTED PRN Peripheral IV Insertion Adult [OM.PC] Routine EKG 12 Lead [EK] Routine 04/08/20 18:25 EKG Documentation Completion [RC] ASDIRECTED 04/08/20 19:00 Ang Chest [CT] Stat - Assessment/Plan Last 24 Hours: My Active Orders 04/08/20 18:24 Chest 1V Frontal [CR] Stat Sodium Chloride 0.9% [Saline Flush] 10 ml FLUSH ASDIRECTED PRN Peripheral IV Insertion Adult [OM.PC] Routine EKG 12 Lead [EK] Routine 04/08/20 18:25 EKG Documentation Completion [RC] ASDIRECTED 04/08/20 19:00 Ang Chest [CT] Stat
[2020-04-08] MEDS ORDERED: Aspirin 81 MG Tab.Chew PO ONE (18:28)
[2020-04-08] MEDS ORDERED: Sodium Chloride 0.9% 500 ML IV ONE (18:59)
[2020-04-08] MEDS ORDERED: Iopamidol 755 Mg/ML 100 ML Bottle IV ONE (19:06)
[2020-04-08] MEDS ORDERED: Heparin Sodium/0.45% NaCl 25,000 UNITS/500 ML BAG IV SCH (20:06)
[2020-04-08] MEDS ORDERED: Acetaminophen 325 MG Tab PO PRN (20:06)
[2020-04-09] MEDS ORDERED: Pantoprazole 40 MG Tab.CR PO SCH (06:00)
[2020-04-09] MEDS ORDERED: Morphine 2 MG/ML SYRINGE ONE (08:48)
[2020-04-09] MEDS ORDERED: Morphine 2 MG/ML SYRINGE IVPUSH ONE (08:50)
[2020-04-09] MEDS: Sodium Chloride 0.9% 10 ML Syringe FLUSH PRN (08:53)
[2020-04-09] MEDS ORDERED: traMADol 50 MG Tab PO ONE (09:12)
[2020-04-09] MEDS ORDERED: traMADol 50 MG Tab ONE (09:14)
--- NOTE | 2020-04-09 09:22 | CR ---
INDICATION: Shortness of breath, chest pressure. CHEST, 1 VIEW: Portable AP, upright view of the chest was obtained 04/08/20 and compared with 06/12/17 and 05/26/15. The heart did not appear grossly enlarged. The aorta is tortuous with minimal calcification in the arch. Overlying EKG leads are noted. A definite active infiltrate or effusion was not identified. Evidence of exogenous obesity is again noted. IMPRESSION: No acute process. MTDD
--- NOTE | 2020-04-09 09:25 | PCM.HP.2 ---
H&P History of Present Illness - General Date of Service: 04/09/20 Admit Problem/Dx: Admission Diagnosis/Problem Admission Diagnosis/Problem Pulmonary embolism Source of Information: Patient, Old Records History Limitations: Reports: No Limitations - History of Present Illness Initial Comments - Free Text/Narative: This is a 59-year-old female patient came to the ER last evening with shortness of breath. Barely started a BM in the morning. She has some chest heaviness and she said her breathing got so bad she could barely walk to her car. She has had a history of DVTs in the past. She has some achiness in her right leg. She denies cough. She has some chills but no runny nose, fevers, arm pain, jaw pain , nausea, vomiting. She was seen in the ER and diagnosed with bilateral extensive pulmonary emboli. She was admitted by the doctor last in place on a heparin drip. Knee Pain Score (Numeric/FACES): 4 Midsternal chest Pain Score (Numeric/FACES): 5 - Related Data Allergies/Adverse Reactions: Allergies Allergy/AdvReac Type Severity Reaction Status Date / Time No Known Allergies Allergy Verified 04/08/20 18:02 Home Medications: Home Meds Cholecalciferol (Vitamin D3) [Vitamin D3] 1,000 unit PO DAILY 10/17/17 [History] Cinnamon Bark [Cinnamon] 500 mg PO BID 10/17/17 [History] Cranberry Fruit Extract [Cranberry] 500 mg PO DAILY 10/17/17 [History] Garlic 1,000 mg PO DAILY 10/17/17 [History] L.acidoph,Paracasei, B.lactis [Probiotic] 1 cap PO DAILY 10/17/17 [History] Magnesium 400 mg PO QID 10/17/17 [History] Multivitamin [One Daily] 1 tab PO DAILY 10/17/17 [History] Tumeric 1 tab PO DAILY 10/17/17 [History] Cyclobenzaprine [Flexeril] 10 mg PO TID PRN 09/20/18 [History] Ibuprofen 400 mg PO BID 09/20/18 [History] diazePAM [Valium] 10 mg PO Q12H PRN 09/20/18 [History] Ascorbate Calcium [Vitamin C] 1,000 mg PO DAILY 11/01/18 [History] Lutein 20 mg PO DAILY 11/01/18 [History] [place]-3/DHA/Epa/Fish Oil [[place]-3 Fish Oil 1,000 MG Sfgl] 1,000 mg PO DAILY [History] Phytonadione [Mephyton] 5 mg PO DAILY 11/01/18 [History] Vitamin E 1,000 units PO DAILY 11/01/18 [History] Esomeprazole [NexIUM] 20 mg PO DAILY 04/08/20 [History] Past Medical History HEENT History: Reports: Impaired Vision, Other (See Below) Other HEENT History: TMJ Cardiovascular History: Reports: Afib, High Cholesterol Gastrointestinal History: Reports: GERD Genitourinary History: Reports: None ANALYTICS LEAD History: Reports: Other OB/BYN History: G2G2 Musculoskeletal History: Reports: Arthritis, Back Pain, Chronic, Other (See Below) Other Musculoskeletal History: Pt states that she has been told she might have MS and or that she might have Fibromyalgia Endocrine/Metabolic History: Reports: Obesity/BMI 30+ - Infectious Disease History Infectious Disease History: Reports: Chicken Pox - Past Surgical History HEENT Surgical History: Reports: Tonsillectomy GI Surgical History: Reports: Cholecystectomy Female Surgical History: Reports: Section, Cystectomy Neurological Surgical History: Reports: Other (See Below) Other Neurological Surgeries/Procedures: back surgery Other Musculoskeletal Surgeries/Procedures:: back surgery Social & Family History - Family History Family Medical History: Unobtainable Cardiac: Reports: CAD - Tobacco Use Smoking Status *Q: Never Smoker - Caffeine Use Caffeine Use: Reports: None - Recreational Drug Use Recreational Drug Use: No - Living Situation & Occupation Occupation: Unemployed H&P Review of Systems - Review of Systems: Review Of Systems: See Below General: Reports: Chills HEENT: Reports: No Symptoms Pulmonary: Reports: Shortness of Breath, Pleuritic Chest Pain. Denies: Wheezing , Cough, Sputum, Hemoptysis Cardiovascular: Reports: Chest Pain Gastrointestinal: Reports: No Symptoms Genitourinary: Reports: No Symptoms Musculoskeletal: Reports: No Symptoms Skin: Reports: No Symptoms Psychiatric: Reports: No Symptoms Neurological: Reports: No Symptoms Hematologic/Lymphatic: Reports: No Symptoms Immunologic: Reports: No Symptoms Exam - Exam Exam: See Below - Vital Signs Vital Signs: Last Vital Signs Temp 98.7 F 04/09/20 04:00 Pulse 94 04/09/20 02:00 Resp 20 06/01/20 04:00 BP 139/66 04/09/20 04:00 Pulse Ox 97 04/09/20 04:00 Weight: 223 lb 9.6 oz - Exam General: Alert, Oriented, Cooperative HEENT: Hearing Intact, Mucosa Moist & [place], Posterior Pharynx Clear, TMs Clear Neck: Supple, Trachea Midline Lungs: Clear to Auscultation, Normal Respiratory Effort, Other (Not using accessory muscle respiration.). No: Crackles, Rales, Rhonchi Cardiovascular: Regular Rate, Regular Rhythm, Tachycardia. No: Systolic Murmur GI/Abdominal Exam: Normal Bowel Sounds, Soft, Non-Tender, No Distention, No Abnormal Bruit Rectal (Female) Exam: Normal Exam Extremities: Normal Inspection, No Pedal Edema Skin: Warm, Dry, Intact Neuro Extensive - Mental Status: Alert, Oriented x3, Normal Mood/Affect, Normal Cognition, Memory Intact Neuro Extensive - Motor, Sensory, Reflexes: Normal Gait Psychiatric: Alert, Normal Mood - Patient Data Lab Results Last 24 hrs: Laboratory Results - last 24 hr 04/08/20 04/08/20 04/08/20 Range/Units 17:55 17:55 17:55 WBC 14.9 H (4.5-12.0) X10-3/uL RBC 6.10 H (3.23-5.20) x10(6)uL Hgb 15.9 H (11.5-15.5) g/dL Hct 50.0 (30.0-51.3) % MCV 81.9 (80-96) fL MCH 26.0 L (27.7-33.6) pg MCHC 31.7 L (32.2-35.4) g/dL RDW 13.2 (11.5-15.5) % Plt Count 379 H (125-369) X10(3)uL MPV 8.6 (7.4-10.4) fL Neut % (Auto) 72.0 (46-82) % Lymph % (Auto) 15.6 (13-37) % [place] % (Auto) 7.8 (4-12) % Eos % (Auto) 2 (1.0-5.0) % Baso % (Auto) 3 H (0-2) % Neut # (Auto) 10.7 H (1.6-8.3) # Lymph # (Auto) 2.3 (0.6-5.0) # [place] # (Auto) 1.2 (0.0-1.3) # Eos # (Auto) 0.2 (0.0-0.8) # Baso # (Auto) 0.5 H (0.0-0.2) # PT (9.0-11.1) sec INR (1.00-1.24) APTT (24.4-33.2) SECONDS Sodium 139 (135-145) mmol/L Potassium 4.2 (3.5-5.3) mmol/L Chloride 103 (100-110) mmol/L Carbon Dioxide 27 (21-32) mmol/L BUN 13 (7-18) mg/dL Creatinine 1.0 (0.55-1.02) mg/dL Est Cr Clr Drug Dosing 51.02 mL/min Estimated GFR (MDRD) 56 L (>60) BUN/Creatinine Ratio 13.0 (9-20) Glucose 113 (80-116) mg/dL Calcium 9.7 (8.6-10.2) mg/dL Magnesium 2.2 (1.8-2.5) mg/dL Total Bilirubin 0.5 (0.1-1.3) mg/dL AST 32 H D (5-25) IU/L ALT 34 (12-36) U/L Alkaline Phosphatase 79 (56-112) IU/L Troponin I 18.8 (4.0-60.3) pg/mL NT-Pro-B Natriuret Pep 844 H (<=125) pg/mL Total Protein 8.1 H (6.0-8.0) g/dL Albumin 4.3 (3.2-4.6) g/dL Globulin 3.8 g/dL Albumin/Globulin Ratio 1.1 04/08/20 04/09/20 04/09/20 Range/Units 17:55 02:05 07:00 WBC (4.5-12.0) X10-3/uL RBC (3.23-5.20) x10(6)uL Hgb (11.5-15.5) g/dL Hct (30.0-51.3) % MCV (80-96) fL MCH (27.7-33.6) pg MCHC (32.2-35.4) g/dL RDW (11.5-15.5) % Plt Count (125-369) X10(3)uL MPV (7.4-10.4) fL Neut % (Auto) (46-82) % Lymph % (Auto) (13-37) % [place] % (Auto) (4-12) % Eos % (Auto) (1.0-5.0) % Baso % (Auto) (0-2) % Neut # (Auto) (1.6-8.3) # Lymph # (Auto) (0.6-5.0) # [place] # (Auto) (0.0-1.3) # Eos # (Auto) (0.0-0.8) # Baso # (Auto) (0.0-0.2) # PT 11.0 (9.0-11.1) sec INR 1.02 (1.00-1.24) APTT 26.7 116.4 H* 68.7 H* (24.4-33.2) SECONDS Sodium (135-145) mmol/L Potassium (3.5-5.3) mmol/L Chloride (100-110) mmol/L Carbon Dioxide (21-32) mmol/L BUN (7-18) mg/dL Creatinine (0.55-1.02) mg/dL Est Cr Clr Drug Dosing mL/min Estimated GFR (MDRD) (>60) BUN/Creatinine Ratio (9-20) Glucose (80-116) mg/dL Calcium (8.6-10.2) mg/dL Magnesium (1.8-2.5) mg/dL Total Bilirubin (0.1-1.3) mg/dL AST (5-25) IU/L ALT (12-36) U/L Alkaline Phosphatase (56-112) IU/L Troponin I (4.0-60.3) pg/mL NT-Pro-B Natriuret Pep (<=125) pg/mL Total Protein (6.0-8.0) g/dL Albumin (3.2-4.6) g/dL Globulin g/dL Albumin/Globulin Ratio Result Diagrams: 04/08/20 17:55 04/08/20 17:55 Sepsis Event Note - Evaluation Sepsis Screening Result: No Definite Risk - Focused Exam Vital Signs: Vital Signs Temp Pulse Resp BP Pulse Ox 04/09/20 04:00 98.7 F 20 139/66 97 04/09/20 02:00 94 20 153/77 H 96 Date Exam was Performed: 04/09/20 Time Exam was Performed: 09:21 - Problem List (1) Bilateral pulmonary embolism SNOMED Code(s): 52570399 ICD Code: I26.99 - OTHER PULMONARY EMBOLISM WITHOUT ACUTE COR PULMONALE Status: Acute Current Visit: Yes (2) Atrial fibrillation SNOMED Code(s): 07768523 ICD Code: I48.91 - UNSPECIFIED ATRIAL FIBRILLATION Status: Acute Current Visit: No Problem Details: Screening lab work, chest x ray, note no other abnormalities. (3) Chest pain SNOMED Code(s): 01097607 ICD Code: R07.9 - CHEST PAIN, UNSPECIFIED Status: Acute Current Visit: No Problem List Initiated/Reviewed/Updated: Yes Orders Last 24hrs: Active Orders 24 hr Category Date Time Status Patient Status [ADT] Routine ADT 04/08/20 20:06 Active Anticoag Warfarin Education *Q [RC] DAILY Care 04/08/20 20:06 Active Cardiac Monitoring [RC] 08,16,00 Care 04/08/20 20:06 Active EKG Documentation Completion [RC] ASDIRECTED Care 04/08/20 18:25 Inactive Height and Weight [RC] UPON Care 04/08/20 20:06 Active Intake and Output [RC] 06,14,22 Care 04/08/20 20:06 Active Oxygen Therapy [RC] PRN Care 04/08/20 20:06 Active Pulse Oximetry [RC] CONTINUOUS Care 04/08/20 20:06 Active Up to Chair [RC] ASDIRECTED Care 04/08/20 20:06 Active VTE/DVT Education [RC] Per Unit Routine Care 04/08/20 20:06 Active Vital Signs [RC] 00,04,08,12,16,20 Care 04/08/20 20:06 Active Ang Chest [CT] Stat Exams 04/08/20 19:00 Taken Chest 1V Frontal [CR] Stat Exams 04/08/20 18:24 Taken PTT,PARTIAL THROMBOPLSTIN TIME [COAG] Routine Lab 04/09/20 13:00 Ordered Acetaminophen [Tylenol] Med 04/08/20 20:06 Active 650 mg PO Q4H PRN Heparin Sodium/0.45% NaCl [Heparin 25,000 Units in 1/2 Med 04/08/20 20:06 Active NS 500 ML] 25,000 units in 500 ml IV TITRATE Pantoprazole [ProTONIX] Med 04/09/20 06:00 Active 40 mg PO 0600 Sodium Chloride 0.9% [Saline Flush] Med 04/08/20 18:24 Active 10 ml FLUSH ASDIRECTED PRN Antiembolic Hose [OM.PC] Per Unit Routine Oth 04/08/20 20:06 Ordered Peripheral IV Insertion Adult [OM.PC] Routine Oth 04/08/20 18:24 Ordered Resuscitation Status Routine Resus Stat 04/08/20 19:46 Ordered EKG 12 Lead [EK] Routine Ther 04/08/20 18:24 Stop Req Medication Orders Acetaminophen (Tylenol) 650 mg PO Q4H PRN PRN Reason: Pain (Mild 1-3)/fever Last Admin: 04/09/20 05:25 Dose: 650 mg Heparin Sodium/Sodium Chloride (Heparin 25,000 Units In 1/2 Ns 500 Ml) 25,000 units in 500 mls @ 35.924 mls/hr IV TITRATE EMILIA; Protocol Last Titration: 04/09/20 03:58 Dose: 15 units/kg/hr, 29.937 mls/hr Admin: 04/08/20 20:45 Dose: 18 units/kg/hr, 35.924 mls/hr Pantoprazole Sodium (Protonix) 40 mg PO 0600 EMILIA Last Admin: 04/09/20 05:25 Dose: 40 mg Sodium Chloride (Saline Flush) 10 ml FLUSH ASDIRECTED PRN PRN Reason: Keep Vein Open Last Admin: 04/08/20 17:55 Dose: 10 ml Assessment/Plan Comment:: 1 admit on telemetry 2. Full code 3. Heparin drip was started. I will continue just in case the patient has a decompensation and it can be stopped. 4. Vitals are stable this time. Will wash him very closely. If they start to get worse consider transfer. I have placed the CT on PACS to [facility] in case I need to call them. 5. Regular diet 6. Up ad franca. 7. Review meds and continue the meds and appropriate. 8. Frequent vitals to watch for drop in blood pressure and oxygenation. Pulse is a little bit tacky so telemetry will be used. - Mortality Measure Prognosis:: Good
--- NOTE | 2020-04-09 10:35 | PCM.DCSUM1 ---
Discharge Summary - Hospital Course Free Text/Narrative:: Hospital course-the admitting doctor started a heparin drip. Most likely I was thinking that he can be stopped if needed be if she needs treatment. I know you checkup today. Initially the patient was stable even though her CT showed extensive bilateral PEs. After while the patient had more left pleuritic chest pain started to radiate around her anterior chest, more short of breath and nauseated. Her vital sign remained stable and she is afebrile. I did send the CT to pacs so it can be reviewed by [facility] doctors if needed. When she started get better I felt because extensiveness of the PE that she should be transferred is a case she deteriorates she would be a better place. I called one call talk to the hospital was dictaphone transcriber. Unfortunately forgot his name but it would be on the one call record. They agreed to take her in transfer. They asked about rotavirus testing. She is low risk but I will just go ahead and do it anyway. She'll be transferred by [facility] on a heparin drip to [facility]. Brief History: This is a 59-year-old female patient came to the ER last evening with shortness of breath. Barely started a BM in the morning. She has some chest heaviness and she said her breathing got so bad she could barely walk to her car. She has had a history of DVTs in the past. She has some achiness in her right leg. She denies cough. She has some chills but no runny nose, fevers, arm pain, jaw pain, nausea, vomiting. She was seen in the ER and diagnosed with bilateral extensive pulmonary emboli. She was admitted by the doctor last in place on a heparin drip. Diagnosis: Stroke: No - Discharge Data Discharge Date: 04/09/20 Discharge Disposition: DC/Tfer to Acute Hospital 02 Condition: Fair - Referral to Home Health Primary Care Physician: Austin Marie MD - Discharge Diagnosis/Problem(s) (1) Bilateral pulmonary embolism SNOMED Code(s): 82285622 ICD Code: I26.99 - OTHER PULMONARY EMBOLISM WITHOUT ACUTE COR PULMONALE Status: Acute Current Visit: Yes (2) Atrial fibrillation SNOMED Code(s): 54233295 ICD Code: I48.91 - UNSPECIFIED ATRIAL FIBRILLATION Status: Acute Current Visit: No Problem Details: Screening lab work, chest x ray, note no other abnormalities. (3) Chest pain SNOMED Code(s): 03015812 ICD Code: R07.9 - CHEST PAIN, UNSPECIFIED Status: Acute Current Visit: No - Patient Instructions Diet: NPO Activity: As Tolerated Driving: Do Not Drive Showering/Bathing: May Shower Other/Special Instructions: 1. Transfer to [facility] because of extensive PEs and seems to be getting worse. Therefore she can have ICU care, IR if needed. 2. Discuss the patient with the on-call hospitalist. Unfortunately he forgot his name at [facility] one call. That would be recorded by [facility] one call. 3. Transferred by [facility] with heparin drip running. 4. We did the COVID 19 screen even though most likely will be negative. If it comes back positive for the next hour I told the nurse to call one call to alert them. - Discharge Plan Home Medications: Home Meds Cholecalciferol (Vitamin D3) [Vitamin D3] 1,000 unit PO DAILY 10/17/17 [History] Cinnamon Bark [Cinnamon] 500 mg PO BID 10/17/17 [History] Cranberry Fruit Extract [Cranberry] 500 mg PO DAILY 10/17/17 [History] Garlic 1,000 mg PO DAILY 10/17/17 [History] L.acidoph,Paracasei, B.lactis [Probiotic] 1 cap PO DAILY 10/17/17 [History] Magnesium 400 mg PO QID 10/17/17 [History] Multivitamin [One Daily] 1 tab PO DAILY 10/17/17 [History] Tumeric 1 tab PO DAILY 10/17/17 [History] Cyclobenzaprine [Flexeril] 10 mg PO TID PRN 09/20/18 [History] Ibuprofen 400 mg PO BID 09/20/18 [History] diazePAM [Valium] 10 mg PO Q12H PRN 09/20/18 [History] Ascorbate Calcium [Vitamin C] 1,000 mg PO DAILY 11/01/18 [History] Lutein 20 mg PO DAILY 11/01/18 [History] [place]-3/DHA/Epa/Fish Oil [[place]-3 Fish Oil 1,000 MG Sfgl] 1,000 mg PO DAILY [History] Phytonadione [Mephyton] 5 mg PO DAILY 12/24/18 [History] Vitamin E 1,000 units PO DAILY 11/01/18 [History] Esomeprazole [NexIUM] 20 mg PO DAILY 04/08/20 [History] Acetaminophen [Tylenol] 650 mg PO Q4H PRN tablet 04/09/20 [Rx] Pantoprazole [ProTONIX] 40 mg PO 0600 tab.cr 04/09/20 [Rx] Sodium Chloride 0.9% [Saline Flush] 10 ml FLUSH ASDIRECTED PRN syringe [Rx] Patient Handouts: Pulmonary Embolism Forms: ED Department Discharge Referrals: Austin Marie MD [Primary Care Provider] - - Discharge Summary/Plan Comment DC Time >30 min.: Yes (Coordination of care/multiple visits) - Patient Data Vitals - Most Recent: Last Vital Signs Temp 98.7 F 04/09/20 04:00 Pulse 94 04/09/20 02:00 Resp 20 04/09/20 04:00 BP 139/66 04/09/20 04:00 Pulse Ox 97 04/09/20 04:00 Weight - Most Recent: 223 lb 9.6 oz I&O - Last 24 hours: Intake & Output 04/08/20 04/09/20 04/09/20 22:59 06:59 14:59 Intake Total 240 288 Output Total 900 Balance 240 -612 Lab Results - Last 24 hrs: Laboratory Results - last 24 hr 04/08/20 04/08/20 04/08/20 Range/Units 17:55 17:55 17:55 WBC 14.9 H (4.5-12.0) X10-3/uL RBC 6.10 H (3.23-5.20) x10(6)uL Hgb 15.9 H (11.5-15.5) g/dL Hct 50.0 (30.0-51.3) % MCV 81.9 (80-96) fL MCH 26.0 L (27.7-33.6) pg MCHC 31.7 L (32.2-35.4) g/dL RDW 13.2 (11.5-15.5) % Plt Count 379 H (125-369) X10(3)uL MPV 8.6 (7.4-10.4) fL Neut % (Auto) 72.0 (46-82) % Lymph % (Auto) 15.6 (13-37) % [place] % (Auto) 7.8 (4-12) % Eos % (Auto) 2 (1.0-5.0) % Baso % (Auto) 3 H (0-2) % Neut # (Auto) 10.7 H (1.6-8.3) # Lymph # (Auto) 2.3 (0.6-5.0) # [place] # (Auto) 1.2 (0.0-1.3) # Eos # (Auto) 0.2 (0.0-0.8) # Baso # (Auto) 0.5 H (0.0-0.2) # PT (9.0-11.1) sec INR (1.00-1.24) APTT (24.4-33.2) SECONDS Sodium 139 (135-145) mmol/L Potassium 4.2 (3.5-5.3) mmol/L Chloride 103 (100-110) mmol/L Carbon Dioxide 27 (21-32) mmol/L BUN 13 (7-18) mg/dL Creatinine 1.0 (0.55-1.02) mg/dL Est Cr Clr Drug Dosing 51.02 mL/min Estimated GFR (MDRD) 56 L (>60) BUN/Creatinine Ratio 13.0 (9-20) Glucose 113 (80-116) mg/dL Calcium 9.7 (8.6-10.2) mg/dL Magnesium 2.2 (1.8-2.5) mg/dL Total Bilirubin 0.5 (0.1-1.3) mg/dL AST 32 H D (5-25) IU/L ALT 34 (12-36) U/L Alkaline Phosphatase 79 (56-112) IU/L Troponin I 18.8 (4.0-60.3) pg/mL NT-Pro-B Natriuret Pep 844 H (<=125) pg/mL Total Protein 8.1 H (6.0-8.0) g/dL Albumin 4.3 (3.2-4.6) g/dL Globulin 3.8 g/dL Albumin/Globulin Ratio 1.1 04/08/20 04/09/20 04/09/20 Range/Units 17:55 02:05 07:00 WBC (4.5-12.0) X10-3/uL RBC (3.23-5.20) x10(6)uL Hgb (11.5-15.5) g/dL Hct (30.0-51.3) % MCV (80-96) fL MCH (27.7-33.6) pg MCHC (32.2-35.4) g/dL RDW (11.5-15.5) % Plt Count (125-369) X10(3)uL MPV (7.4-10.4) fL Neut % (Auto) (46-82) % Lymph % (Auto) (13-37) % [place] % (Auto) (4-12) % Eos % (Auto) (1.0-5.0) % Baso % (Auto) (0-2) % Neut # (Auto) (1.6-8.3) # Lymph # (Auto) (0.6-5.0) # [place] # (Auto) (0.0-1.3) # Eos # (Auto) (0.0-0.8) # Baso # (Auto) (0.0-0.2) # PT 11.0 (9.0-11.1) sec INR 1.02 (1.00-1.24) APTT 26.7 116.4 H* 68.7 H* (24.4-33.2) SECONDS Sodium (135-145) mmol/L Potassium (3.5-5.3) mmol/L Chloride (100-110) mmol/L Carbon Dioxide (21-32) mmol/L BUN (7-18) mg/dL Creatinine (0.55-1.02) mg/dL Est Cr Clr Drug Dosing mL/min Estimated GFR (MDRD) (>60) BUN/Creatinine Ratio (9-20) Glucose (80-116) mg/dL Calcium (8.6-10.2) mg/dL Magnesium (1.8-2.5) mg/dL Total Bilirubin (0.1-1.3) mg/dL AST (5-25) IU/L ALT (12-36) U/L Alkaline Phosphatase (56-112) IU/L Troponin I (4.0-60.3) pg/mL NT-Pro-B Natriuret Pep (<=125) pg/mL Total Protein (6.0-8.0) g/dL Albumin (3.2-4.6) g/dL Globulin g/dL Albumin/Globulin Ratio Med Orders - Current: Current Medications Acetaminophen (Tylenol) 650 mg PO Q4H PRN PRN Reason: Pain (Mild 1-3)/fever Last Admin: 04/09/20 05:25 Dose: 650 mg Heparin Sodium/Sodium Chloride (Heparin 25,000 Units In 1/2 Ns 500 Ml) 25,000 units in 500 mls @ 35.924 mls/hr IV TITRATE EMILIA; Protocol Last Titration: 04/09/20 03:58 Dose: 15 units/kg/hr, 29.937 mls/hr Pantoprazole Sodium (Protonix) 40 mg PO 0600 EMILIA Last Admin: 04/09/20 05:25 Dose: 40 mg Sodium Chloride (Saline Flush) 10 ml FLUSH ASDIRECTED PRN PRN Reason: Keep Vein Open Last Admin: 04/09/20 08:53 Dose: 10 ml Discontinued Medications Aspirin (Aspirin) 324 mg PO ONETIME ONE Stop: 04/08/20 18:29 Last Admin: 04/08/20 18:29 Dose: 324 mg Sodium Chloride (Normal Saline) 500 mls @ 999 mls/hr IV .BOLUS ONE Stop: 04/08/20 19:29 Last Admin: 04/08/20 19:20 Dose: 999 mls/hr Iopamidol (Isovue-370 (76%)) 100 ml IV . DIRECTED ONE Stop: 04/08/20 19:07 Last Admin: 04/08/20 19:18 Dose: 77 ml Morphine Sulfate (Morphine) Confirm Administered Dose 2 mg .ROUTE .STK-MED ONE Stop: 04/09/20 08:49 Last Admin: 04/09/20 09:18 Dose: Not Given Morphine Sulfate (Morphine) 2 mg IVPUSH ONETIME ONE Stop: 04/09/20 08:51 Last Admin: 04/09/20 08:52 Dose: 2 mg Tramadol HCl (Ultram) 50 mg PO ONETIME ONE Stop: 04/09/20 09:13 Last Admin: 04/09/20 09:16 Dose: 50 mg Tramadol HCl (Ultram) Confirm Administered Dose 50 mg .ROUTE .STK-MED ONE Stop: 04/09/20 09:15 Last Admin: 04/09/20 09:19 Dose: Not Given
[2020-04-09 11:19] VITALS: BP 141/80; PULSE 97
== END 2020-04-09 10:52 | DRG 176 ==
LOC: FB.ED 17:41 → FB.MS 20:04
PROVIDERS: ADMIT Family Medicine; ATTEND Family Medicine
DX: I26.99 Other pulmonary embolism without acute cor pulmonale (principal); I48.91 Unspecified atrial fibrillation; H54.7 Unspecified visual loss; E78.00 Pure hypercholesterolemia, unspecified; K21.9 Gastro-esophageal reflux disease without esophagitis; M19.90 Unspecified osteoarthritis, unspecified site; G89.29 Other chronic pain; Z20.828 Contact with and (suspected) exposure to other viral communicable diseases; M54.9 Dorsalgia, unspecified; E66.9 Obesity, unspecified; Z90.89 Acquired absence of other organs; Z90.49 Acquired absence of other specified parts of digestive tract; Z98.890 Other specified postprocedural states; Z79.899 Other long term (current) drug therapy; Z86.718 Personal history of other venous thrombosis and embolism; Z79.01 Long term (current) use of anticoagulants; Z68.38 Body mass index [BMI] 38.0-38.9, adult
CPT/HCPCS: 36415; 71045; 71275; 80053; 83735; 83880; 84484; 85025; 85610; 85730; 93005; 99285-25; A9270-GY; J1644; J2270; J7040; Q9967; U0002

== ENCOUNTER 2020-04-27 21:22 | Emergency (ER) | payer MEDICAID, OTHER ==
[2020-04-27] MEDS ORDERED: Iopamidol 755 Mg/ML 100 ML Bottle IV ONE (22:14)
[2020-04-27] MEDS ORDERED: Sodium Chloride 0.9% 10 ML Syringe FLUSH PRN (22:16)
--- NOTE | 2020-04-27 22:20 | EDM.PDOC ---
ED HPI GENERAL MEDICAL PROBLEM - General Chief Complaint: Respiratory Problem Stated Complaint: SOB Time Seen by Provider: 04/27/20 22:00 Source of Information: Reports: Patient, EMS, Old Records History Limitations: Reports: No Limitations - History of Present Illness INITIAL COMMENTS - FREE TEXT/NARRATIVE: Pilar returns to [facility] ED with ongoing sxs of SOB this week, worse since this afternoon. She has experienced sxs of chest pains primarily in the posterior chest, dyspnea on exertion, palpitations, and worry that she is having more blood clots. She was hospitalized with PE on April 08 and transferred to [facility] the following day for managment. She was discharged on Coumadin, last INR 2.7 on April 24. Palpitations ceased shortly after admission to the ED. Right Upper Shoulder Pain Score (Numeric/FACES): 5 - Related Data Allergies Allergy/AdvReac Type Severity Reaction Status Date / Time No Known Allergies Allergy Verified 04/27/20 21:48 Home Meds: Home Meds Cholecalciferol (Vitamin D3) [Vitamin D3] 1,000 unit PO DAILY 10/17/17 [History] Cinnamon Bark [Cinnamon] 500 mg PO BID 10/17/17 [History] Cranberry Fruit Extract [Cranberry] 500 mg PO DAILY 10/17/17 [History] Garlic 1,000 mg PO DAILY 10/17/17 [History] L.acidoph,Paracasei, B.lactis [Probiotic] 1 cap PO DAILY 10/17/17 [History] Magnesium 400 mg PO QID 10/17/17 [History] Multivitamin [One Daily] 1 tab PO DAILY 10/17/17 [History] Tumeric 1 tab PO DAILY 10/17/17 [History] Cyclobenzaprine [Flexeril] 10 mg PO TID PRN 09/20/18 [History] Ibuprofen 400 mg PO BID 09/20/18 [History] diazePAM [Valium] 10 mg PO Q12H PRN 09/20/18 [History] Ascorbate Calcium [Vitamin C] 1,000 mg PO DAILY 11/01/18 [History] Lutein 20 mg PO DAILY 11/01/18 [History] [place]-3/DHA/Epa/Fish Oil [[place]-3 Fish Oil 1,000 MG Sfgl] 1,000 mg PO DAILY 11/01/18 [History] Phytonadione [Mephyton] 5 mg PO DAILY 11/01/18 [History] Vitamin E 1,000 units PO DAILY 11/01/18 [History] Esomeprazole [NexIUM] 20 mg PO DAILY 04/08/20 [History] Acetaminophen [Tylenol] 650 mg PO Q4H PRN tablet 04/09/20 [Rx] Pantoprazole [ProTONIX] 40 mg PO 0600 tab.cr 04/09/20 [Rx] Warfarin [Coumadin] 7.5 mg PO SUMOTUWETHSA 04/27/20 [History] Warfarin [Coumadin] 10 mg PO FR 04/27/20 [History] Past Medical History HEENT History: Reports: Impaired Vision, Other (See Below) Other HEENT History: TMJ Cardiovascular History: Reports: Afib, High Cholesterol Gastrointestinal History: Reports: GERD Genitourinary History: Reports: None 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 Musculoskeletal History: Reports: Arthritis, Back Pain, Chronic, Other (See Below) Other Musculoskeletal History: Pt states that she has been told she might have MS and or that she might have Fibromyalgia Endocrine/Metabolic History: Reports: Obesity/BMI 30+ - Infectious Disease History Infectious Disease History: Reports: Chicken Pox - Past Surgical History HEENT Surgical History: Reports: Tonsillectomy GI Surgical History: Reports: Cholecystectomy Female Surgical History: Reports: Section, Cystectomy Neurological Surgical History: Reports: Other (See Below) Other Neurological Surgeries/Procedures: back surgery Other Musculoskeletal Surgeries/Procedures:: back surgery Social & Family History - Family History Family Medical History: Unobtainable Cardiac: Reports: CAD - Tobacco Use Smoking Status *Q: Never Smoker Second Hand Smoke Exposure: No - Caffeine Use Caffeine Use: Reports: None - Recreational Drug Use Recreational Drug Use: No - Living Situation & Occupation Occupation: Unemployed ED ROS GENERAL - Review of Systems Review Of Systems: See Below Constitutional: Reports: Malaise, Fatigue HEENT: Reports: No Symptoms Respiratory: Reports: Shortness of Breath Cardiovascular: Reports: Chest Pain (atypical chest pains, primarily in posterior chest, R>L), Dyspnea on Exertion, Palpitations Endocrine: Reports: No Symptoms GI/Abdominal: Reports: No Symptoms : Reports: No Symptoms Musculoskeletal: Reports: No Symptoms Skin: Reports: No Symptoms Neurological: Reports: No Symptoms Psychiatric: Reports: Anxiety Hematologic/Lymphatic: Reports: No Symptoms Immunologic: Reports: No Symptoms ED EXAM, GENERAL - Physical Exam Exam: See Below Exam Limited By: No Limitations General Appearance: Alert, WD/WN, No Apparent Distress, Anxious, Obese Eye Exam: Bilateral Eye: EOMI, Normal Inspection, PERRL Ears: Normal External Exam Nose: Normal Inspection Throat/Mouth: Normal Inspection, Normal Lips, Normal Oropharynx, No Airway Compromise Head: Normocephalic Neck: Normal Inspection, Supple, Non-Tender Respiratory/Chest: No Respiratory Distress, Lungs Clear, Normal Breath Sounds, No Accessory Muscle Use, Chest Non-Tender Cardiovascular: Normal Peripheral Pulses, Regular Rate, Rhythm, No Edema, No JVD, No Murmur GI/Abdominal: Normal Bowel Sounds, Soft, Non-Tender, No Organomegaly, No Distention, No Mass (Female) Exam: Deferred Rectal (Female) Exam: Deferred Back Exam: Normal Inspection, Full Range of Motion Extremities: Normal Inspection Neurological: Alert, Oriented, CN II-XII Intact, Normal Cognition, Normal Gait, No Motor/Sensory Deficits Psychiatric: Anxious Skin Exam: Warm, Dry, Intact, Normal Color Lymphatic: No Adenopathy Course - Vital Signs Text/Narrative:: Following assessment, I obtained some screening labs: CBC, BMP, BNP, and Troponin I all baseline, INR 2.18; a Chest CT angio noted no new pulmonaary emobli or signs of pneumonia; 02 sats remain 98-100% on RA, ekg NSR. I offered to keep patient overnight and remain on monitor, and patient elected to go home. Last Recorded V/S: Last Vital Signs Temp 36.8 C 04/27/20 21:48 Pulse 93 04/27/20 21:48 Resp 18 04/27/20 21:48 BP 152/67 H 04/27/20 21:48 Pulse Ox 99 04/27/20 21:48 - Orders/Labs/Meds Orders: Active Orders 24 hr Category Date Time Status EKG Documentation Completion [RC] ASDIRECTED Care 04/27/20 22:16 Active Ang Chest [CT] Stat Exams 04/27/20 22:14 Taken Sodium Chloride 0.9% [Saline Flush] Med 04/27/20 22:16 Active 10 ml FLUSH ASDIRECTED PRN Peripheral IV Insertion Adult [OM.PC] Routine Oth 04/27/20 22:16 Ordered EKG 12 Lead [EK] Routine Ther 04/27/20 22:15 Ordered Medication Orders Sodium Chloride (Saline Flush) 10 ml FLUSH ASDIRECTED PRN PRN Reason: Keep Vein Open Labs: Laboratory Tests 04/27/20 04/27/20 04/27/20 Range/Units 22:30 22:30 22:30 WBC 9.6 (4.5-12.0) X10-3/uL RBC 5.99 H (3.23-5.20) x10(6)uL Hgb 15.0 (11.5-15.5) g/dL Hct 49.0 (30.0-51.3) % MCV 81.7 (80-96) fL MCH 25.1 L (27.7-33.6) pg MCHC 30.7 L (32.2-35.4) g/dL RDW 13.5 (11.5-15.5) % Plt Count 621 H (125-369) X10(3)uL MPV 9.2 (7.4-10.4) fL Neut % (Auto) 77.6 (46-82) % Lymph % (Auto) 13.4 (13-37) % Arthur % (Auto) 3.7 L (4-12) % Eos % (Auto) 2 (1.0-5.0) % Baso % (Auto) 4 H (0-2) % Neut # (Auto) 7.4 (1.6-8.3) # Lymph # (Auto) 1.3 (0.6-5.0) # Arthur # (Auto) 0.4 (0.0-1.3) # Eos # (Auto) 0.2 (0.0-0.8) # Baso # (Auto) 0.3 H (0.0-0.2) # PT 22.4 H (9.0-11.1) sec INR 2.18 H (1.00-1.24) D-Dimer, Quantitative 0.33 (0.0-0.59) mg/LFEU Sodium 140 (135-145) mmol/L Potassium 3.6 (3.5-5.3) mmol/L Chloride 103 (100-110) mmol/L Carbon Dioxide 27 (21-32) mmol/L BUN 16 (7-18) mg/dL Creatinine 1.1 H (0.55-1.02) mg/dL Est Cr Clr Drug Dosing 46.38 mL/min Estimated GFR (MDRD) 50 L (>60) BUN/Creatinine Ratio 14.5 (9-20) Glucose 147 H (80-116) mg/dL Calcium 9.5 (8.6-10.2) mg/dL Troponin I (4.0-60.3) pg/mL NT-Pro-B Natriuret Pep (<=125) pg/mL 04/27/20 Range/Units 22:30 WBC (4.5-12.0) X10-3/uL RBC (3.23-5.20) x10(6)uL Hgb (11.5-15.5) g/dL Hct (30.0-51.3) % MCV (80-96) fL MCH (27.7-33.6) pg MCHC (32.2-35.4) g/dL RDW (11.5-15.5) % Plt Count (125-369) X10(3)uL MPV (7.4-10.4) fL Neut % (Auto) (46-82) % Lymph % (Auto) (13-37) % Arthur % (Auto) (4-12) % Eos % (Auto) (1.0-5.0) % Baso % (Auto) (0-2) % Neut # (Auto) (1.6-8.3) # Lymph # (Auto) (0.6-5.0) # Arthur # (Auto) (0.0-1.3) # Eos # (Auto) (0.0-0.8) # Baso # (Auto) (0.0-0.2) # PT (9.0-11.1) sec INR (1.00-1.24) D-Dimer, Quantitative (0.0-0.59) mg/LFEU Sodium (135-145) mmol/L Potassium (3.5-5.3) mmol/L Chloride (100-110) mmol/L Carbon Dioxide (21-32) mmol/L BUN (7-18) mg/dL Creatinine (0.55-1.02) mg/dL Est Cr Clr Drug Dosing mL/min Estimated GFR (MDRD) (>60) BUN/Creatinine Ratio (9-20) Glucose (80-116) mg/dL Calcium (8.6-10.2) mg/dL Troponin I 6.1 (4.0-60.3) pg/mL NT-Pro-B Natriuret Pep 62 (<=125) pg/mL Meds: Medications Generic Name Dose Route Start Last Admin Trade Name Freq PRN Reason Stop Dose Admin Sodium Chloride 10 ml 04/27/20 22:16 Saline Flush FLUSH ASDIRECTED PRN Keep Vein Open Discontinued Medications Generic Name Dose Route Start Last Admin Trade Name Freq PRN Reason Stop Dose Admin Iopamidol 100 ml 04/27/20 22:14 04/27/20 22:58 Isovue-370 (76%) IV 04/27/20 22:15 90 ml . DIRECTED ONE Administration Departure - Departure Time of Disposition: 23:57 Disposition: Home, Self-Care 01 Condition: Good Clinical Impression: Dyspnea, unspecified Qualifiers: Dyspnea type: unspecified Qualified Code(s): R06.00 - Dyspnea, unspecified - Discharge Information *PRESCRIPTION DRUG MONITORING PROGRAM REVIEWED*: Not Applicable *COPY OF PRESCRIPTION DRUG MONITORING REPORT IN PATIENT SHELBY: Not Applicable Referrals: PCP,None [Primary Care Provider] - Forms: ED Department Discharge Sepsis Event Note (ED) - Evaluation Sepsis Screening Result: No Definite Risk - Focused Exam Vital Signs: Vital Signs Temp Pulse Resp BP Pulse Ox 04/27/20 21:48 36.8 C 93 18 152/67 H 99 - Problem List & Annotations (1) Dyspnea, unspecified SNOMED Code(s): 984264811 Code(s): R06.00 - DYSPNEA, UNSPECIFIED Status: Acute Current Visit: Yes Annotation/Comment:: No change in current managment suggested. Qualifiers: Dyspnea type: unspecified Qualified Code(s): R06.00 - Dyspnea, unspecified - Problem List Review Problem List Initiated/Reviewed/Updated: Yes - My Orders Last 24 Hours: My Active Orders 04/27/20 22:14 Ang Chest [CT] Stat 04/27/20 22:15 EKG 12 Lead [EK] Routine 04/27/20 22:16 EKG Documentation Completion [RC] ASDIRECTED Sodium Chloride 0.9% [Saline Flush] 10 ml FLUSH ASDIRECTED PRN Peripheral IV Insertion Adult [OM.PC] Routine - Assessment/Plan Last 24 Hours: My Active Orders 04/27/20 22:14 Ang Chest [CT] Stat 04/27/20 22:15 EKG 12 Lead [EK] Routine 04/27/20 22:16 EKG Documentation Completion [RC] ASDIRECTED Sodium Chloride 0.9% [Saline Flush] 10 ml FLUSH ASDIRECTED PRN Peripheral IV Insertion Adult [OM.PC] Routine Plan: Follow up with PCP.
[2020-04-28 02:22] VITALS: BP 149/76; PULSE 98
== END 2020-04-28 00:10 | disposition home or self-care (01) ==
LOC: FB.ED 21:22
DX: R06.02 Shortness of breath (principal); I48.91 Unspecified atrial fibrillation; K21.9 Gastro-esophageal reflux disease without esophagitis; Z79.01 Long term (current) use of anticoagulants; E66.9 Obesity, unspecified; Z68.37 Body mass index [BMI] 37.0-37.9, adult; Z79.899 Other long term (current) drug therapy
CPT/HCPCS: 36415; 71275; 80048; 83880; 84484; 85025; 85379; 85610; 93005; 99285; Q9967

== ENCOUNTER 2020-12-04 21:42 | Emergency (ER) | payer MEDICAID ==
[2020-12-04 22:15] VITALS: BP 163/70; PULSE 97
[2020-12-04] MEDS ORDERED: Potassium Chloride 20 MEQ Tab.ER PO ONE (22:28)
--- NOTE | 2020-12-04 22:52 | EDM.PDOC ---
ED HPI GENERAL MEDICAL PROBLEM - General Chief Complaint: Cardiovascular Problem Stated Complaint: IRREGULAR HEART BEAT Time Seen by Provider: 12/04/20 21:45 Source of Information: Reports: Patient History Limitations: Reports: No Limitations - History of Present Illness INITIAL COMMENTS - FREE TEXT/NARRATIVE: Patient presented to the ED because of palpitations, dyspnea for 1 week. She also c/o chest tightness, no nausea or vomiting. She has a history of Chronic Afib and is not taking any rate controlling agent but she is anticoagulated with warfarin. - Related Data Allergies Allergy/AdvReac Type Severity Reaction Status Date / Time No Known Allergies Allergy Verified 04/27/20 21:48 Home Meds: Home Meds Cholecalciferol (Vitamin D3) [Vitamin D3] 1,000 unit PO DAILY 10/17/17 [History] Cinnamon Bark [Cinnamon] 500 mg PO BID 10/17/17 [History] Cranberry Fruit Extract [Cranberry] 500 mg PO DAILY 10/17/17 [History] Garlic 1,000 mg PO DAILY 10/17/17 [History] L.acidoph,Paracasei, B.lactis [Probiotic] 1 cap PO DAILY 10/17/17 [History] Magnesium 400 mg PO QID 10/17/17 [History] Multivitamin [One Daily] 1 tab PO DAILY 10/17/17 [History] Tumeric 1 tab PO DAILY 10/17/17 [History] Cyclobenzaprine [Flexeril] 10 mg PO TID PRN 09/20/18 [History] Ibuprofen 400 mg PO BID 09/20/18 [History] diazePAM [Valium] 10 mg PO Q12H PRN 09/20/18 [History] Ascorbate Calcium [Vitamin C] 1,000 mg PO DAILY 11/01/18 [History] Lutein 20 mg PO DAILY 11/01/18 [History] [place]-3/DHA/Epa/Fish Oil [[place]-3 Fish Oil 1,000 MG Sfgl] 1,000 mg PO DAILY 11/01/18 [History] Phytonadione [Mephyton] 5 mg PO DAILY 11/01/18 [History] Vitamin E (Dl,Tocopheryl Acet) [Vitamin E] 1,000 units PO DAILY 11/01/18 [History] Esomeprazole [NexIUM] 20 mg PO DAILY 04/08/20 [History] Acetaminophen [Tylenol] 650 mg PO Q4H PRN tablet 04/09/20 [Rx] Pantoprazole [ProTONIX] 40 mg PO 0600 tab.cr 04/09/20 [Rx] Warfarin [Coumadin] 7.5 mg PO SUMOTUWETHSA 04/27/20 [History] Warfarin [Coumadin] 10 mg PO FR 04/27/20 [History] Past Medical History HEENT History: Reports: Impaired Vision, Other (See Below) Other HEENT History: TMJ Cardiovascular History: Reports: Afib, High Cholesterol Gastrointestinal History: Reports: GERD Genitourinary History: Reports: None 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: G2G2 Musculoskeletal History: Reports: Arthritis, Back Pain, Chronic, Other (See Below) Other Musculoskeletal History: Pt states that she has been told she might have MS and or that she might have Fibromyalgia Endocrine/Metabolic History: Reports: Obesity/BMI 30+ - Infectious Disease History Infectious Disease History: Reports: Chicken Pox - Past Surgical History HEENT Surgical History: Reports: Tonsillectomy GI Surgical History: Reports: Cholecystectomy Female Surgical History: Reports: Section, Cystectomy Neurological Surgical History: Reports: Other (See Below) Other Neurological Surgeries/Procedures: back surgery Other Musculoskeletal Surgeries/Procedures:: back surgery Social & Family History - Family History Family Medical History: Unobtainable Cardiac: Reports: CAD - Tobacco Use Tobacco Use Status *Q: Never Tobacco User - Caffeine Use Caffeine Use: Reports: None - Recreational Drug Use Recreational Drug Use: No - Living Situation & Occupation Occupation: Unemployed ED ROS GENERAL - Review of Systems Review Of Systems: See Below Constitutional: Reports: No Symptoms HEENT: Reports: No Symptoms Respiratory: Reports: Shortness of Breath Cardiovascular: Reports: No Symptoms, Chest Pain Endocrine: Reports: No Symptoms GI/Abdominal: Reports: No Symptoms : Reports: No Symptoms Musculoskeletal: Reports: No Symptoms Skin: Reports: No Symptoms ED EXAM, GENERAL - Physical Exam Exam: See Below Exam Limited By: No Limitations General Appearance: Alert, No Apparent Distress Ears: Normal External Exam Nose: Normal Inspection, Normal Mucosa, No Blood Throat/Mouth: Normal Inspection, Normal Lips, Normal Teeth Head: Atraumatic, Normocephalic Neck: Normal Inspection, Supple, Non-Tender, Full Range of Motion Respiratory/Chest: No Respiratory Distress, Lungs Clear, Normal Breath Sounds Cardiovascular: Normal Peripheral Pulses, Regular Rate, Rhythm, Tachycardia GI/Abdominal: Normal Bowel Sounds, Soft, Non-Tender, No Organomegaly Back Exam: Normal Inspection, Full Range of Motion Extremities: Normal Inspection, Normal Range of Motion, Non-Tender Course - Vital Signs Text/Narrative:: Labs/EKG/CXR was discussed with patient Sherie-3.4 Klor con 40 meq po x1 Last Recorded V/S: Last Vital Signs Temp 36.7 C 12/04/20 21:42 Pulse 97 12/04/20 21:42 Resp 18 12/04/20 21:42 BP 163/70 H 12/04/20 21:42 Pulse Ox 97 12/04/20 21:42 - Orders/Labs/Meds Orders: Active Orders 24 hr Category Date Time Status EKG Documentation Completion [RC] ASDIRECTED Care 12/04/20 22:07 Active Chest 1V Frontal [CR] Stat Exams 12/04/20 22:06 Taken EKG 12 Lead [EK] Routine Ther 12/04/20 22:06 Ordered Labs: Laboratory Tests 12/04/20 12/04/20 12/04/20 Range/Units 21:49 21:49 21:49 WBC 11.5 H (3.0-10.3) x10-3/uL RBC 6.22 H (3.60-5.20) x10(6)uL Hgb 15.9 H (11.4-15.5) g/dL Hct 49.6 H (34.2-48.2) % MCV 79.7 (76.7-100.5) fL MCH 25.6 (23.9-33.9) pg MCHC 32.1 (31.9-34.8) g/dL RDW 15.3 (12.3-16.5) % Plt Count 586 H (151-488) x10(3)uL MPV 9.2 (7.1-12.4) fL Neut % (Auto) 69.7 (30.8-76.2) % Lymph % (Auto) 19.7 (18.4-52.1) % [place] % (Auto) 7.2 (4.4-15.7) % Eos % (Auto) 2.3 (0.6-8.1) % Baso % (Auto) 1.1 (0.2-1.5) % Neut # (Auto) 8.0 H (1.5-6.3) x10-3/uL Lymph # (Auto) 2.3 (1.0-4.4) x10-3/uL [place] # (Auto) 0.8 (0.3-1.0) x10-3/uL Eos # (Auto) 0.3 (0.0-0.8) x10-3/uL Baso # (Auto) 0.1 (0.0-0.1) x10-3/uL PT 27.5 H (9.0-11.1) sec INR 2.72 H (1.00-1.24) D-Dimer, Quantitative (0.0-0.59) mg/LFEU Sodium 141 (135-145) mmol/L Potassium 3.4 L (3.5-5.3) mmol/L Chloride 102 (100-110) mmol/L Carbon Dioxide 26 (21-32) mmol/L BUN 13 (7-18) mg/dL Creatinine 0.9 (0.55-1.02) mg/dL Est Cr Clr Drug Dosing 53.61 mL/min Estimated GFR (MDRD) > 60 (>60) BUN/Creatinine Ratio 14.4 (9-20) Glucose 148 H (80-116) mg/dL Calcium 8.6 (8.6-10.2) mg/dL Total Bilirubin 0.3 (0.1-1.3) mg/dL AST 20 D (5-25) IU/L ALT 44 H D (12-36) U/L Alkaline Phosphatase 64 (56-112) IU/L Troponin I (4.0-60.3) pg/mL NT-Pro-B Natriuret Pep (<=125) pg/mL Total Protein 7.3 (6.0-8.0) g/dL Albumin 4.4 (3.2-4.6) g/dL Globulin 2.9 g/dL Albumin/Globulin Ratio 1.5 12/04/20 12/04/20 Range/Units 21:49 21:49 WBC (3.0-10.3) x10-3/uL RBC (3.60-5.20) x10(6)uL Hgb (11.4-15.5) g/dL Hct (34.2-48.2) % MCV (76.7-100.5) fL MCH (23.9-33.9) pg MCHC (31.9-34.8) g/dL RDW (12.3-16.5) % Plt Count (151-488) x10(3)uL MPV (7.1-12.4) fL Neut % (Auto) (30.8-76.2) % Lymph % (Auto) (18.4-52.1) % [place] % (Auto) (4.4-15.7) % Eos % (Auto) (0.6-8.1) % Baso % (Auto) (0.2-1.5) % Neut # (Auto) (1.5-6.3) x10-3/uL Lymph # (Auto) (1.0-4.4) x10-3/uL [place] # (Auto) (0.3-1.0) x10-3/uL Eos # (Auto) (0.0-0.8) x10-3/uL Baso # (Auto) (0.0-0.1) x10-3/uL PT (9.0-11.1) sec INR (1.00-1.24) D-Dimer, Quantitative < 0.19 (0.0-0.59) mg/LFEU Sodium (135-145) mmol/L Potassium (3.5-5.3) mmol/L Chloride (100-110) mmol/L Carbon Dioxide (21-32) mmol/L BUN (7-18) mg/dL Creatinine (0.55-1.02) mg/dL Est Cr Clr Drug Dosing mL/min Estimated GFR (MDRD) (>60) BUN/Creatinine Ratio (9-20) Glucose (80-116) mg/dL Calcium (8.6-10.2) mg/dL Total Bilirubin (0.1-1.3) mg/dL AST (5-25) IU/L ALT (12-36) U/L Alkaline Phosphatase (56-112) IU/L Troponin I 5.0 (4.0-60.3) pg/mL NT-Pro-B Natriuret Pep 99 (<=125) pg/mL Total Protein (6.0-8.0) g/dL Albumin (3.2-4.6) g/dL Globulin g/dL Albumin/Globulin Ratio Meds: Medications Discontinued Medications Generic Name Dose Route Start Last Admin Trade Name Melvin PRN Reason Stop Dose Admin Potassium Chloride 40 meq 12/04/20 22:28 12/04/20 22:39 Klor-Con M20 PO 12/04/20 22:29 40 meq ONETIME ONE Administration Departure - Departure Time of Disposition: 22:50 Disposition: Home, Self-Care 01 Condition: Good Clinical Impression: Palpitations, Sinus tachycardia, Hypokalemia Instructions: Sinus Tachycardia, Palpitations, [id number] Referrals: Eren Gilmore MD [Primary Care Provider] - Forms: ED Department Discharge Additional Instructions: Please read discharge instructions on hypokalemia(low potassium), Palpitations, Sinus tach Follow up with your doctor this week Sepsis Event Note (ED) - Evaluation Sepsis Screening Result: No Definite Risk - Focused Exam Vital Signs: Vital Signs Temp Pulse Resp BP Pulse Ox 12/04/20 21:42 36.7 C 97 18 163/70 H 97 - My Orders Last 24 Hours: My Active Orders 12/04/20 22:06 Chest 1V Frontal [CR] Stat EKG 12 Lead [EK] Routine 12/04/20 22:07 EKG Documentation Completion [RC] ASDIRECTED - Assessment/Plan Last 24 Hours: My Active Orders 12/04/20 22:06 Chest 1V Frontal [CR] Stat EKG 12 Lead [EK] Routine 12/04/20 22:07 EKG Documentation Completion [RC] ASDIRECTED
--- NOTE | 2020-12-05 10:35 | CR ---
INDICATION: Dyspnea. CHEST, ONE VIEW: Portable AP upright view of the chest 12/04/20 was compared with 04/08/20 and 06/12/17. Evidence of exogenous obesity is again noted. The heart appears to be within normal limits in size allowing for the AP positioning. The aorta is somewhat tortuous with calcification in the arch. Overlying EKG leads are noted. Pulmonary markings are similar to the previous study without a definite active infiltrate or effusion. IMPRESSION: 1. No acute process. 2. ASD aorta. 3. Exogenous obesity. MTDD
== END 2020-12-04 23:15 | disposition home or self-care (01) ==
LOC: FB.ED 21:42
DX: E87.6 Hypokalemia (principal); R00.0 Tachycardia, unspecified; I48.91 Unspecified atrial fibrillation; K21.9 Gastro-esophageal reflux disease without esophagitis; E66.9 Obesity, unspecified; Z68.20 Body mass index [BMI] 20.0-20.9, adult; Z79.01 Long term (current) use of anticoagulants; Z79.899 Other long term (current) drug therapy
CPT/HCPCS: 36415; 71045; 80053; 83880; 84484; 85025; 85379; 85610; 93005; 99285-25; A9270-GY

== ENCOUNTER 2021-08-06 08:25 | Day surgery (SDC) | payer MEDICAID ==
[2021-08-06] MEDS ORDERED: fentaNYL 100 MCG/2 ML SDV IV ONE (08:26)
[2021-08-06] MEDS ORDERED: Midazolam 1 MG/ML 2 ML SDV IV ONE (08:26)
[2021-08-06] MEDS ORDERED: Lactated Ringers 1,000 ML IV PRN (09:00)
[2021-08-06] MEDS: Sodium Chloride 0.9% 10 ML Syringe FLUSH PRN (09:45)
[2021-08-06] MEDS: acetaZOLAMIDE 500 MG Cap.ER PO ONE (10:47)
[2021-08-06 11:12] VITALS: BP 129/62; PULSE 78
--- NOTE | 2021-08-06 12:04 | OR ---
DATE OF OPERATION: 08/06/2021 SURGEON: Key Grady MD PREOPERATIVE DIAGNOSIS: 1. Visually significant cataract, left eye. 2. Astigmatism, left eye. POSTOPERATIVE DIAGNOSIS: 1. Visually significant cataract, left eye. 2. Astigmatism, left eye. PROCEDURES PERFORMED: Phacoemulsification with intraocular lens placement, left eye. ASSISTANTS: None. ANESTHESIA: Local with sedation. COMPLICATIONS: None. BLOOD LOSS: None. IMPLANTS: Pre-loaded [id number] 24.0 diopter lens implanted. CDE: 3.16. DESCRIPTION OF PROCEDURE: After risks and benefits were reviewed with the patient, consent was obtained in the preoperative area, and the operative eye was marked with a surgical pen. In the preoperative area, a pledget was used to dilate the pupil consisting of a mixture of phenylephrine 10%, cyclopentolate 2%, moxifloxacin 0.5%, and bupivacaine 0.75%. A drop of tetracaine was placed and a toric marker was used to colten the 0 and 180 meridians. The patient was taken to the operating room, where a time-out was performed, and the patient was placed under monitored anesthesia care. Topical tetracaine was used for anesthesia. The operative eye was prepped and draped for ophthalmic surgery, and the microscope was brought into position and focused. A paracentesis incision was made, followed by injection of preservative-free 1% lidocaine into the anterior chamber, followed by injection of Viscoat into the anterior chamber. A microkeratome blade was used to make a corneal limbal incision temporally. A cystotome was used to make the beginning of the capsulorrhexis, which was carried around 360 degrees in a curvilinear fashion using Utrata forceps. A Sargent cannula with BSS was used to hydrodissect and hydrodelineate the nucleus. The nucleus was removed in a divide and conquer manner using phacoemulsification. Irrigation and aspiration were used to remove the remaining cortical material. Provisc was used to inflate the capsular bag, and a pre-loaded [id number] 24.0 diopter lens, serial number [id number] was injected into the capsular bag. A Sinskey hook was used to position and center the lens and rotate it to the axis of astigmatism. Next, irrigation and aspiration was used to remove any remaining viscoelastic and cortical material from the anterior chamber. BSS on a cannula was used to inflate the anterior chamber and hydrate the wound. The wound was checked and found to be watertight. 1 mg of Moxifloxacin was injected into the anterior chamber. Drapes were removed and the eye was cleaned. A drop of brimonidine 0.2% and a drop of TobraDex was placed. The eye was shielded, and the patient was taken to the recovery room in stable condition. /[id number] KRISTINE/ROGELIO
== END 2021-08-06 11:45 | disposition home or self-care (01) ==
LOC: FB.SDS 08:25
PROVIDERS: ATTEND Ophthalmology
DX: H26.9 Unspecified cataract (principal); H52.202 Unspecified astigmatism, left eye; I48.0 Paroxysmal atrial fibrillation; E78.00 Pure hypercholesterolemia, unspecified; G89.29 Other chronic pain; Z79.899 Other long term (current) drug therapy; Z98.890 Other specified postprocedural states
CPT/HCPCS: 00142-QZ; A9270-GY; J2250; J3010

== ENCOUNTER → 2021-08-20 | Day surgery (SDC) | payer MEDICAID ==
[~2021-08-20] MED LIST: Citric Acid/Sodium Citrate Solution 30 ML Cup PO ONE; Lactated Ringers 1,000 ML IV PRN; Midazolam 1 MG/ML 2 ML SDV IV ONE; Sodium Chloride 0.9% 10 ML Syringe FLUSH PRN; acetaZOLAMIDE 500 MG Cap.ER PO ONE; fentaNYL 100 MCG/2 ML SDV IV ONE
[2021-08-20 09:32] VITALS: BP 139/70; PULSE 75
--- NOTE | 2021-08-20 12:54 | OR ---
DATE OF OPERATION: 08/20/2021 SURGEON: Key Grady MD PREOPERATIVE DIAGNOSIS: 1. Visually significant cataract, right eye. 2. Astigmatism, right eye. POSTOPERATIVE DIAGNOSIS: 1. Visually significant cataract, right eye. 2. Astigmatism, right eye. PROCEDURES PERFORMED: Phacoemulsification with toric intraocular lens placement, right eye. ASSISTANTS: None. ANESTHESIA: Local with sedation. COMPLICATIONS: None. BLOOD LOSS: None. IMPLANTS: A pre-loaded toric KGH751 23.5 diopter lens implanted. CDE: 1.11. DESCRIPTION OF PROCEDURE: After risks and benefits were reviewed with the patient, consent was obtained in the preoperative area, and the operative eye was marked with a surgical pen. In the preoperative area, a pledget was used to dilate the pupil consisting of a mixture of phenylephrine 10%, cyclopentolate 2%, moxifloxacin 0.5%, and bupivacaine 0.75%. A toric marker was used to colten the 0 and 180 axis. The patient was taken to the operating room, where a time- out was performed, and the patient was placed under monitored anesthesia care. Topical tetracaine was used for anesthesia. The operative eye was prepped and draped for ophthalmic surgery, and the microscope was brought into position and focused. Richardson marker was used to colten the axis of astigmatism. A paracentesis incision was made, followed by injection of preservative-free 1% lidocaine into the anterior chamber, followed by injection of Viscoat into the anterior chamber. A microkeratome blade was used to make a corneal limbal incision temporally. A cystotome was used to make the beginning of the capsulorrhexis, which was carried around 360 degrees in a curvilinear fashion using Utrata forceps. A Sargent cannula with BSS was used to hydrodissect and hydrodelineate the nucleus. The nucleus was removed in a divide and conquer manner using phacoemulsification. Irrigation and aspiration were used to remove the remaining cortical material. Provisc was used to inflate the capsular bag, and a pre-loaded toric GUC282 23.5 diopter lens, serial number [id number] was injected into the capsular bag. A Sinskey hook was used to position and center the lens and rotate it to the axis of astigmatism. Next, irrigation and aspiration was used to remove any remaining viscoelastic and cortical material from the anterior chamber. BSS on a cannula was used to inflate the anterior chamber and hydrate the wound. The wound was checked and found to be watertight. 1 mg of Moxifloxacin was injected into the anterior chamber. Drapes were removed and the eye was cleaned. A drop of brimonidine 0.2% and a drop of TobraDex was placed. The eye was shielded, and the patient was taken to the recovery room in stable condition. /[id number] KRISTINE/ROGELIO
== END ==
LOC: FB.SDS 07:16
PROVIDERS: ATTEND Ophthalmology
DX: H26.9 Unspecified cataract (principal); H52.201 Unspecified astigmatism, right eye; I48.0 Paroxysmal atrial fibrillation; E78.00 Pure hypercholesterolemia, unspecified; G89.29 Other chronic pain; Z79.899 Other long term (current) drug therapy; Z98.890 Other specified postprocedural states
CPT/HCPCS: 00142; 66984; A9270; J2250; J3010

== ENCOUNTER 2021-12-15 19:03 | Emergency (ER) | payer MEDICAID ==
[2021-12-15 19:22] VITALS: BP 157/82; PULSE 110
[2021-12-15] MEDS ORDERED: Sodium Chloride 0.9% 10 ML Syringe FLUSH PRN ×2 (20:00→21:02)
== END 2021-12-15 23:45 | disposition home or self-care (01) ==
LOC: FB.ED 19:03
DX: R06.00 Dyspnea, unspecified (principal); M79.89 Other specified soft tissue disorders; R00.0 Tachycardia, unspecified; I48.91 Unspecified atrial fibrillation; K21.9 Gastro-esophageal reflux disease without esophagitis; M19.90 Unspecified osteoarthritis, unspecified site; E66.9 Obesity, unspecified; Z68.39 Body mass index [BMI] 39.0-39.9, adult; Z86.711 Personal history of pulmonary embolism; Z79.01 Long term (current) use of anticoagulants; Z79.899 Other long term (current) drug therapy
CPT/HCPCS: 36415; 71045; 80053; 83735; 84484; 85025; 85379; 85610; 93005; 99285-25